=== PATIENT | male | born 1935 | race Caucasian/White ===

== ENCOUNTER 2017-06-11 15:02 | Emergency (ER) | payer MEDICARE, OTHER ==
[~2017-06-11] VITALS: Ht 177.8 cm; Wt 80.0 kg
[~2017-06-11 15:02] MED LIST: ACCU40TA10 PO; ASPI81 PO; COUM1TAB PO; COUM4TAB7 PO; HYDR-2768 PO; LEVI20TA PO
[2017-06-11 15:24] VITALS: BP 188/103; PULSE 150; RESP 20; TEMP 98.3
--- NOTE | 2017-06-11 16:04 | PD ---
HPI Chief Complaint: ENT Complaint Time Seen by Provider: 15:30 Travel History International Travel<30 days: No Contact w/Intl Traveler<30days: No Traveled to known affect area: No History of Present Illness HPI 81-year-old male complains of bleeding from the left ear. Patient has history of atrial fibrillation and on Coumadin. Patient was at his personal physician office today. Patient has was found to have impacted cerumen left ear. Irrigation was advised. Patient started having bleeding from the left ear during the procedure. Patient states that he felt a pop and then he started having bleeding problem from the left ear. Patient denies any headache. Patient denies any chest pain or shortness of breath. Patient denies abdominal pain. Patient denies other problem. Patient states that he has elevated heart rates recently. Patient has not seen a mate relief of the past 5 years. PFSH Past Medical History Blood Disorders: No Cancer: No Cardiovascular Problems: Yes Endocrine: No Genitourinary: No Headaches: Yes (TODAY) Hypertension: Yes (ON MEDICATION DAILY) Immune Disorder: No Musculoskeletal: Yes Neurologic: Yes Psychiatric: No Reproductive: No Respiratory: Yes (WALKING PNEUMONIA 1978) Past Surgical History AICD: No Arteriovenous Shunt: No Insulin Pump: No Joint Replacement: No Pacemaker: No Tonsillectomy: Yes Social History Alcohol Use: Yes (ONE WINE NIGHTLY) Tobacco Use: No (QUIT IN 1978) Substance Use: No Allergies-Medications (Allergen,Severity, Reaction): Coded Allergies: No Known Allergies (Verified Adverse Reaction, Unknown, 06/11/17) Reported Meds & Prescriptions Reported Meds & Active Scripts Active Amoxicillin 500 Mg Cap 500 Mg PO TID Cardizem CD 24 HR (Diltiazem CD 24 HR) 180 Mg Caper 180 Mg PO DAILY Reported Warfarin 1 Mg Tab 1 Mg PO DAILY Warfarin 4 Mg Tab 4 Mg PO DAILY Levitra (Vardenafil) 20 Mg Tab 20 Mg PO DAILY PRN Accupril (Quinapril HCl) 40 Mg Tab 40 Mg PO DAILY Aspirin EC (Aspirin) 81 Mg Tabdr 81 Mg PO DAILY Hydrochlorothiazide 25 Mg Tab 25 Mg PO DAILY Review of Systems General / Constitutional: No: Fever Eyes: No: Visual changes HENT: No: Headaches Cardiovascular: No: Chest Pain or Discomfort Respiratory: No: Shortness of Breath Gastrointestinal: No: Abdominal Pain Genitourinary: No: Dysuria Musculoskeletal: No: Pain Skin: No Rash Neurologic: No: Weakness Psychiatric: No: Depression Endocrine: No: Polydipsia Hematologic/Lymphatic: No: Easy Bruising Physical Exam Narrative GENERAL: Well-nourished, well-developed patient. SKIN: Focused skin assessment warm/dry. HEAD: Normocephalic. EYES: No scleral icterus. No injection or drainage. Patient had fresh blood in the left ear canal. No active bleeding. Unable to visualize the left TM. NECK: Supple, trachea midline. No JVD or lymphadenopathy. CARDIOVASCULAR: Irregular irregular rate and rhythm without murmurs, gallops, or rubs. RESPIRATORY: Breath sounds equal bilaterally. No accessory muscle use. GASTROINTESTINAL: Abdomen soft, non-tender, nondistended. MUSCULOSKELETAL: No cyanosis, or edema. BACK: Nontender without obvious deformity. No CVA tenderness. Data Data Last Documented VS Vital Signs Date Time Temp Pulse Resp B/P (MAP) Pulse Ox O2 Delivery O2 Flow Rate FiO2 06/11/17 16:10 118 18 145/95 (112) 95 Room Air 06/11/17 15:24 98.3 Orders Orders Diltiazem (Cardizem) (06/11/17 16:45) Electrocardiogram (06/11/17 ) Ed Discharge Order (06/11/17 17:31) MDM Medical Decision Making Medical Screen Exam Complete: Yes Emergency Medical Condition: Yes Interpretation(s) environmental monitoring technician shows patient has atrial fibrillation with RVR rate between 120- 140 Differential Diagnosis Differential diagnosis including left ear canal abrasion, laceration, left TM rupture. Narrative Course 81-year-old male with left ear bleeding during left ear irrigation procedure. Patient has history of atrial fibrillation on Coumadin. Patient states that her INR has been stable for last 4 years and does not want to have PT/INR done again today. The left ear canal stop bleeding completely. Unable to see the left TM. Patient has A. fib with RVR. Cardizem 60 mg p.o. given. Heart rate under more control. Diagnosis Primary Impression: Abrasion of left ear canal Qualified Codes: S00.412A - Abrasion of left ear, initial encounter Additional Impressions: Traumatic rupture of left ear drum Qualified Codes: S09.22XA - Traumatic rupture of left ear drum, initial encounter Atrial fibrillation with RVR Patient Instructions: General Instructions Additional Instructions: Amoxicillin as directed. Check INR in 3 days and subsequently while on antibiotic. Follow-up with ENT. Return if persistent bleeding. Cardizem as directed. Follow-up with personal physician and mate relief. Return if persistent problem or worse. Return if persistent elevated heart rate. Med/Other Pt SpecificInfo: Prescription(s) given Scripts Amoxicillin (Amoxicillin) 500 Mg Cap 500 MG PO TID for Infection, #15 CAP 0 Refills Prov: Remberto Saleh MD 06/11/17 Diltiazem CD 24 HR (Cardizem CD 24 HR) 180 Mg Caper 180 MG PO DAILY, #30 CAP 0 Refills Prov: Remberto Saleh MD 06/11/17 Disposition: 01 DISCHARGE HOME Condition: Stable Remberto Saleh MD Jun 11, 2017 16:03
[2017-06-11 16:10] VITALS: BP 145/95; PULSE 118; RESP 18; O2SAT 95
[2017-06-11] MEDS ORDERED: LEVI20TA PO (16:16)
[2017-06-11] MEDS ORDERED: WARF-20 PO (16:16)
[2017-06-11] MEDS ORDERED: WARF4TAB52 PO (16:16)
[2017-06-11] MEDS ORDERED: HYDR25TA5 PO (16:16)
[2017-06-11] MEDS ORDERED: ACCU40TA PO (16:16)
[2017-06-11] MEDS ORDERED: ASPI81TA23 PO (16:16)
[2017-06-11] MEDS ORDERED: CARD180C5 PO (16:37)
[2017-06-11] MEDS ORDERED: AMOX500C PO (16:37)
[2017-06-11] MEDS ORDERED: DILTIAZEM HCL 60 MG TAB PO ONE (16:45)
[2017-06-11 17:54] VITALS: BP 139/68; PULSE 99; RESP 18; O2SAT 99
--- NOTE | 2017-06-12 13:27 | EKG ---
Date Performed: 06/11/2017 Time Performed: 16:47:40 PTAGE: 81 years EKG: ATRIAL FIBRILLATION WITH RAPID VENTRICULAR RESPONSE RIGHT BUNDLE BRANCH BLOCK ST DEVIATION AND MODERATE T-WAVE ABNORMALITY, CONSIDER LATERAL ISCHEMIA ABNORMAL ECG Compared to PREVIOUS TRACING atrial fibrillation with rapid v response is new, anterior T wave becker es are also now noted, consider anterior ischemia PREVIOUS TRACIN11/22/2006 04.47 DOCTOR: Hector Carter Interpretating Date/Time 06/12/2017 13:26:22
== END 2017-06-11 18:12 | disposition home or self-care (01) ==
LOC: NEPC 15:02
DX: H95.41 Postprocedural hemorrhage of ear and mastoid process following a procedure on the ear and mastoid process (principal); S09.22XA Traumatic rupture of left ear drum, initial encounter; I48.91 Unspecified atrial fibrillation; I45.10 Unspecified right bundle-branch block; R94.31 Abnormal electrocardiogram [ECG] [EKG]; I10 Essential (primary) hypertension; Y65.8 Other specified misadventures during surgical and medical care; Z79.01 Long term (current) use of anticoagulants; Z79.82 Long term (current) use of aspirin
CPT/HCPCS: 93005; 99283

== ENCOUNTER → 2017-06-17 | Outpatient (CLI) | payer MEDICARE, OTHER ==
[~2017-06-17] MED LIST changes: +ACCU40TA PO; -ACCU40TA10 PO; +AMOX500C PO; -ASPI81 PO; +ASPI81TA23 PO; +CARD180C5 PO; -COUM1TAB PO; -COUM4TAB7 PO; -HYDR-2768 PO; +HYDR25TA5 PO; +WARF-20 PO; +WARF4TAB52 PO
[2017-06-17 11:50] LABS: PROTHROMBIN TIME - PATIENT 27.6 SEC (9.8-11.6)
[2017-06-17 11:58] LABS: INTERNATIONAL NORMALIZED RATIO 2.7 RATIO
== END ==
LOC: CLAB 10:47
PROVIDERS: ATTEND Family Medicine
DX: I48.0 Paroxysmal atrial fibrillation (principal)
CPT/HCPCS: 36415; 85610

== ENCOUNTER → 2017-07-17 | Outpatient (CLI) | payer MEDICARE, OTHER ==
[2017-07-17 12:35] LABS: INTERNATIONAL NORMALIZED RATIO 2.9 RATIO; PROTHROMBIN TIME - PATIENT 28.8 SEC (9.8-11.6)
== END ==
LOC: CLAB 12:11
PROVIDERS: ATTEND Family Medicine
DX: I48.0 Paroxysmal atrial fibrillation (principal)
CPT/HCPCS: 36415; 85610

== ENCOUNTER 2018-03-29 06:21 | Inpatient (IN) ==
[~2018-03-29 06:21] MED LIST changes: -ACCU40TA PO; -AMOX500C PO; -ASPI81TA23 PO; -CARD180C5 PO; -HYDR25TA5 PO; -LEVI20TA PO; +Metoprolol Tartrate 25 MG Tablet PO SCH; -WARF-20 PO; -WARF4TAB52 PO
[2018-03-29] MEDS ORDERED: Dextrose 50% in Water 50 ML Vial IV.PUSH PRN ×2 (06:46→11:55)
[2018-03-29] MEDS ORDERED: Insulin Regular (For Infusion) 100 UNIT in Sodium Chlor 0.9% Inj 99 ML IV.CONT PRN ×2 (06:46→11:55)
[2018-03-29] MEDS ORDERED: Sodium Chlor 0.9% Inj 77.5 ML, Papaverine Inj 60 MG, Nitroglycerin Inj 100 MCG, dilTIAZ... IRRIGATION SCH ×3 (07:00)
[2018-03-29] MEDS ORDERED: Chlorhexidine 4% Topical 120 APPLIC/120 ML Bottle TOPICAL SCH (07:00)
[2018-03-29] MEDS ORDERED: ceFAZolin 2 GM IV; once IV.SIG SCH (07:00)
[2018-03-29] MEDS ORDERED: Sodium Chloride 0.9% Irr Bot 500 ML, ceFAZolin Inj 500 MG IRRIGATION SCH ×2 (07:00)
[2018-03-29] MEDS ORDERED: Sodium Chlor 0.9% Inj 500 ML IV.CONT ONE (07:15)
[2018-03-29] MEDS ORDERED: Chlorhexidine Gluconate 2% 1 Pack (2 Cloths) TOPICAL ONE (07:15)
[2018-03-29] MEDS ORDERED: Metoprolol Tartrate 25 MG Tablet PO ONE (07:15)
[2018-03-29] MEDS ORDERED: ceFAZolin 2 GM Premix Inj 2 GM/50 ML PIGGYBACK IV.SIG ONE (07:36)
[2018-03-29] MEDS ORDERED: MethylPREDNISolone Sod Succinate Inj 125 MG/2 ML Vial ONE (07:37)
[2018-03-29] MEDS ORDERED: Heparin - SQ 10,000 UNITS/ML Vial ONE (07:37)
[2018-03-29] MEDS ORDERED: Dexmedetomidine Inj 200 MCG/2 ML Vial ONE (08:27)
[2018-03-29] MEDS ORDERED: Heparin - SQ 10,000 UNITS/ML Vial OTHER ONE (08:37)
[2018-03-29] MEDS ORDERED: Artificial Tears Opth Oint 3.5 GM Tube EACH EYE ONE (08:37)
[2018-03-29] MEDS ORDERED: Dexmedetomidine Inj 200 MCG/2 ML Vial IV.CONT ONE (08:37)
[2018-03-29] MEDS ORDERED: Glycopyrrolate Inj 1 MG/5 ML Syringe IV.PUSH ONE (08:37)
[2018-03-29] MEDS ORDERED: Nitroglycerin Drip Premix 50 MG/250 ML BOTTLE IV.CONT ONE (08:37)
[2018-03-29] MEDS ORDERED: Phenylephrine/NS 1000 MCG/10ML Syringe IV.PUSH ONE (08:37)
[2018-03-29] MEDS ORDERED: Lidocaine PF 1% Inj 5 ML Syringe OTHER ONE (08:37)
[2018-03-29] MEDS ORDERED: Neostigmine Inj 5 MG/5 ML Syringe IV.PUSH ONE (08:37)
[2018-03-29] MEDS ORDERED: Calcium Chloride Inj 1 GM/10 ML Syringe IV.CONT ONE (08:37)
[2018-03-29] MEDS ORDERED: Protamine Sulfate Inj 250 MG/25 ML Vial IV.CONT ONE (08:37)
[2018-03-29] MEDS ORDERED: Magnesium Sulfate Inj 2 GM in Sodium Chlor 0.9% Inj 96 ML IV.SIG PRN ×4 (11:55)
[2018-03-29] MEDS ORDERED: Dexmedetomidine Inj 200 MCG in Sodium Chlor 0.9% Inj 48 ML IV.CONT PRN (11:55)
[2018-03-29] MEDS ORDERED: Metoprolol Inj 5 MG/5 ML Vial IV.PUSH PRN (11:55)
[2018-03-29] MEDS ORDERED: Post-op Orders (for Pharmacy) OTHER STA (11:55)
[2018-03-29] MEDS ORDERED: hydrALAZINE HCl Inj 20 MG/ML Vial IV.PUSH PRN (11:55)
[2018-03-29] MEDS ORDERED: RESP: Racemic Epinephrine 2.25% 0.5 ML Neb NEB PRN (11:55)
[2018-03-29] MEDS ORDERED: Potassium Chlor 20 mEq Premix 20 MEQ/100 ML PIGGYBACK IV.SIG PRN ×2 (11:55)
[2018-03-29] MEDS ORDERED: Calcium Chloride Inj 1 GM/10 ML Syringe IV.PUSH PRN (11:55)
--- NOTE | 2018-03-29 12:02 | P.OP ---
- Preoperative Diagnosis (1) CAD (coronary artery disease) (2) Angina pectoris (3) CHF (congestive heart failure), NYHA class III (4) Calcification of aorta Postoperative Diagnosis: same Date of procedure: 03/29/18 Implants: OFF pump CABG x 3 GARZA to LAd - good SVG to D1 - good SVG to PDA - good EVH MOO Anesthesia: SHAKIR Surgeon: Karrie Miller MD Inspector And Hand Packager: Veronica Winn Pathology: none sent Operation and Findings: The risks, benefits, complications, treatment options, and expected outcomes were discussed with the patient. The possibilities of reaction to medication, pulmonary aspiration, perforation of viscus, bleeding, recurrent infection, the need for additional procedures, failure to diagnose a condition, and creating a complication requiring transfusion or operation were discussed with the patient. The patient concurred with the proposed plan, giving informed consent. The site of surgery properly noted/marked. The patient was taken to Operating Room, identified as Buck Romero and the procedure verified as CABG, EVH, MOO. A Time Out was held and the above information confirmed. Standard monitoring lines and Nunez catheter were placed. General anesthesia was induced. The patient was prepped and draped in a sterile fashion. A median sternotomy was performed and electrocautery was used to obtain hemostasis. The left internal mammary artery was procured as a pedicle from the 7th rib to the 1st rib in the usual manner. Simultaneously left greater saphenous vein was procured from the left leg using a minimally invasive endoscopic technique. The vein was prepared for anastomosis and the leg wound was irrigated and closed in 2 layers. The pericardium was opened and a pericardial sling was created using interrupted 0 silk sutures. The patient was heparinized for cardiopulmonary bypass and the distal mammary pedicle was instrumented for anastomosis. The heart was instrumented with stabilizers for off pump grafting in the usual manner. The distal LAD was opened with a Alvord blade and found to be a 1.5 millimeter good target. The left internal mammary artery was approximated to the LAD using a running 7 0 Prolene suture. The pedicle was attached to the epicardium using interrupted 5 0 silk suture. The 1st diagonal artery was then opened with a Alvord blade and found to be a 1.5 millimeter good target. Saphenous vein was approximated to the D1 artery using a running 7 0 Prolene suture. The graft was measured for length and orientation and was suspended from the pericardium. The PDA was opened with a Alvord blade and found to be a 1.5 millimeter good target. Saphenous vein was approximated to the PDA artery using a running 7 0 Prolene suture. The graft was measured for length and orientation and the proximal anastomosis was constructed to the ascending aorta using a running 5 0 Prolene suture after creating an aortotomy with a 5 millimeter punch. A Heartstring device was used for hemostasis. The proximal anastomosis to the D1 graft was accomplished in an end to side manner to the PDA vein graft after creating a small venotomy using running 7-0 Prolene suture. Protamine was given. There was no adverse reaction. Wound was checked for hemostasis which was obtained using electrocautery. A 36 Korean mediastinal and 32 Korean left pleural chest tubes were placed and secured to the skin with 0 silk suture. The sternum was closed with stainless steel wire. The fascia was closed with 1. PDS. The subcutaneous tissue was closed using a running 2-0 Vicryl suture. The skin was closed with 4-0 Monocryl. Sterile dressings were placed. At the end of the operation, all sponge, instruments, and needle counts were correct. The patient was transferred to the CVICU in stable condition. Findings: PORCELAIN AORTA Drains: mediastinal x 1 pleural x 1 Complications: NONE
[2018-03-29 12:40] LABS: Baso % (Auto) 0.2 % (0.0-2.0); Eos # (Auto) 0.1 th/mm3 (0.0-0.4); Eos % (Auto) 0.9 % (0.0-4.0); Hematocrit 37.8 % (39.0-51.0); Lymph # (Auto) 1.3 th/mm3 (1.0-4.8); Lymph % (Auto) 16.5 % (9.0-44.0); Mean Corpuscular HGB Conc 34.3 % (32.0-36.0); Mean Corpuscular Hemoglobin 30.1 pg (27.0-34.0); Mean Corpuscular Volume 87.6 fL (80.0-100.0); Mean Platelet Volume 8.5 fL (7.0-11.0); Mono # (Auto) 0.3 th/mm3 (0.0-0.9); Mono % (Auto) 3.4 % (0.0-8.0); Neut # (Auto) 6.1 th/mm3 (1.8-7.7); Platelet Count 86 th/mm3 (150-450); Red Blood Count 4.32 mil/mm3 (4.50-5.90); Red Cell Distribution Width 15.5 % (11.6-17.2); White Blood Count 7.7 th/mm3 (4.0-11.0)
[2018-03-29 12:55] LABS: Activated Partial Thrombo Time 29.8 sec (23.4-31.7); INR 1.3 Ratio; Prothrombin Time 13.5 sec (9.8-11.6)
[2018-03-29] MEDS ORDERED: Clevidipine Inj 25 MG/50 ML VIAL IV.CONT PRN (13:02)
[2018-03-29] MEDS ORDERED: fentaNYL Citrate Inj 250 MCG/5 ML Ampul ONE (13:09)
[2018-03-29 13:12] LABS: Platelet Morphology Normal (Normal)
[2018-03-29] MEDS: Albumin Human 5% Inj 250 ML IV.SIG PRN ×2 (13:22→14:20)
--- NOTE | 2018-03-29 13:32 | XR ---
EXAM DATE: 03/29/2018 1:26 PM EST AGE/SEX: 82 years / Male INDICATIONS: Post op CABG. CLINICAL DATA: This is the patient's initial encounter. Patient reports that signs and symptoms have been present for 1 day and indicates a pain score of Nonresponsive. MEDICAL/SURGICAL HISTORY: Hypertension. AFIB. Non-responsive. COMPARISON: C, CHEST 2V PA&LAT, 03/22/2018. . FINDINGS: Mild compensated cardiomegaly. Sternal wires from previous bypass are noted. ET tube central venous c atheter and left chest tube in good position. There is no pneumothorax. Mediastinal contours are appr opriate. CONCLUSION: Support apparatus in good position Satisfactory postoperative chest. Electronically signed by: Adair Oh MD Board Certified Radiologist 03/29/2018 1:30 PM EST
[2018-03-29] MEDS ORDERED: Calcium Chloride Inj 1 GM in Sodium Chlor 0.9% Inj 100 ML IV.SIG PRN (14:00)
--- NOTE | 2018-03-29 14:45 | P.PNCV ---
- Note Subjective/Hospital Course: 82/ male initially seen in office by Dr Miller 03/18/18. hx of chronic afib, presented to Dr Singh having developed exertional SOB. Overall decreased ability to exercise, evaluated with a stress test and ECHO which were notable for reduced EF. Recent heart cath revealed 3 vessel CAD, EF 35% PMH: chronic afib ( eliquis) , GERD, CAD, HLP, HTN, CHF 03/29 pt electively admitted for surgery - Preoperative Diagnosis (1) CAD (coronary artery disease (2) Angina pectoris (3) CHF (congestive heart failure), NYHA class III (4) Calcification of aorta Date of procedure: 03/29/18 OFF pump CABG x 3 GARZA to LAd - good SVG to D1 - good SVG to PDA - good EVH MOO Objective: Vital Signs - 24 hr 03/29/18 07:03 03/29/18 12:58 03/29/18 13:07 Temperature 97.6 F 96.0 F L Pulse Rate 90 58 L Respiratory Rate 22 10 L 10 L Blood Pressure 124/57 L 101/59 L Pulse Oximetry 98 99 99 03/29/18 13:20 Temperature 96.0 F L Pulse Rate 67 Respiratory Rate 9 L Blood Pressure 122/61 Pulse Oximetry 99 Labs: Laboratory Results - last 12 hr 03/29/18 03/29/18 03/29/18 06:48 12:23 12:24 WBC 7.7 RBC 4.32 L Hgb 13.0 Hct 37.8 L MCV 87.6 MCH 30.1 MCHC 34.3 RDW 15.5 Plt Count 86 L D MPV 8.5 Prelim Diff (Auto) Slide review pending Neut % (Auto) 79.0 H Lymph % (Auto) 16.5 [place] % (Auto) 3.4 Eos % (Auto) 0.9 Baso % (Auto) 0.2 Neut # (Auto) 6.1 Lymph # (Auto) 1.3 [place] # (Auto) 0.3 Eos # (Auto) 0.1 Baso # (Auto) 0.0 WBC Differential . Diff Scan Auto diff confirmed Differential Comment . Platelet Estimate Low L Platelet Morphology Normal PT INR APTT Fibrinogen POC Glucose Blood Type A Positive Antibody Screen Negative H Ab Screen Tube Method Negative Crossmatch See Detail Bld Prod Order Comment 03/29/18 03/29/18 12:24 13:53 WBC RBC Hgb Hct MCV MCH MCHC RDW Plt Count MPV Prelim Diff (Auto) Neut % (Auto) Lymph % (Auto) [place] % (Auto) Eos % (Auto) Baso % (Auto) Neut # (Auto) Lymph # (Auto) [place] # (Auto) Eos # (Auto) Baso # (Auto) WBC Differential Diff Scan Differential Comment Platelet Estimate Platelet Morphology PT 13.5 H INR 1.3 APTT 29.8 Fibrinogen 174 L POC Glucose 137 H Blood Type Antibody Screen Ab Screen Tube Method Crossmatch Bld Prod Order Comment Result Diagrams: 03/29/18 12:24
--- NOTE | 2018-03-29 14:51 | P.DCO ---
- Diagnosis (1) Angina pectoris Status: Acute (2) CAD (coronary artery disease) Status: Acute (3) CHF (congestive heart failure), NYHA class III Status: Chronic (4) S/P CABG x 3 Status: Acute (5) Atrial fibrillation Status: Acute - Home Health Nursing Order: Medical education, Signs/symptoms of disease process, CHF education, Wound care and dressing changes, Nursing assessment with vital signs Instructions: Heart and Vascular Surgery patients *Special attention to sternal dressing Mandatory frequency Assess and evaluation, 4 days in a row The next week 3X week 2 times a week for 4 weeks 1 time a week for 5 weeks Schedule Heart and Vascular patients for full 60 day certification period Initial visit Review Open Heart Surgery Discharge Instructions (Sternal precautions, Activity, Elastic hose, Incision care, Driving, Incentive spirometry, Smoking, [place], Work and other) Need Betadine to paint incision Medication reconciliation Importance of follow up care/ check on appointments Make calendar record temperature daily When to call [facility] at Home nurse, review instructions, phone list Incentive Spirometry, demonstration Visit 1- Begin discharge instruction for patient family and/ or caregiver using teach back method- Signs and symptoms of infection Disease characteristics Medicines and side effects Foods and nutrition/ appetite Infection control/ hand washing/ hygiene Visit 2- Continue teaching Discharge instructions- include additional information on smoking cessation , sternal dressing (sternal vac) Visit 3- Continue teaching- Cough and deep breathing, incision monitoring. Choose my plate Visit 4- Continue teaching- Discuss limitations Discuss how they are feeling Discuss progress toward goals Remaining visits- continue teaching and monitoring For any questions please call : Thursday 8am-5pm Heart & Vascular Surgery Office ( Dr. Winn & Dr. Miller), After Hours / Nights (5pm -8am) Weekends and Holidays Please call [facility] ([facility]) Charge Nurse Incentive spirometry Q1 hr x 10, while awake, also use acapella device hourly whole awake Sternal Breast Bone Precautions: NO pushing or pulling, ( pt must use sternal pillow to support chest with all activities and with coughing ( takes up to 3 months breast bone to heal ) All females to wear sternal bra , launder as needed Daily incision care: ok to shower daily, no tub bath. Wash all incisions with liquid dial soap, clean wash cloth to each site, rinse and pat dry. Observe for any signs of infection, such as drainage which is dark yellow, nguyen, green or foul smelling. Immediately report to the surgeon any drainage from the chest incision, or legs, and for any abnormal drainage from the chest tube sites. Notify surgeon if any temp >101.5 degrees F. When specialty dressing removed/ or if you do not have one, continue to shower daily as above, then rinse and pat incision dry and paint with betadine daily x 5 days. Allow steri strips to fall off if you have any. Avoid lotions, creams, salves, oils, etc. for the first month Please see attached forms for additional instructions regarding post Open Heart specialty wound vacuum dressings. MARISELA or Prevena , Dressing to be removed by Nursing staff on __04/05/[address] Miller patients , please obtain CBC, BMP, PA & Lat CXR in 2 weeks, results to Dr. Miller ( prescription will be given) ( ) (Tele: [phone]) , Valve replacement pts will need 2decho in 2 weeks with results to Dr. Miller . Please obtain 2 d echo at your relay shop tester office if possible F/U appointment: as per DC instructions: PCP in 2 weeks, CV surgeon 2 weeks, Strategic Sourcing Manager 3-4 weeks For any questions regarding incisions/ dressing / meds / post op care or above Symptoms, Thursday 8am-5pm Heart & Vascular Surgery Office ( Dr. Winn & Dr. Miller), After Hours / Nights (5pm -8am) Weekends and Holidays Please call [facility] Card[facility] Unit ([facility]) Charge Nurse PREVENA Single Use Negative Wound Therapy System Caregiver Instruction Sheet 1. A Prevena dressing system was applied to the chest incision during surgery , to promote wound healing. It works via a suction device (negative pressure wound therapy) to remove low to moderate levels of exudate (drainage) and infectious materials. We recommend that the device stay in place for up to seven days, from day of surgery. 2. Day of Surgery___03/29/18 Day of Removal 04/05/18 3. The dressing should only be removed by a health customer care agent. Please arrange removal of device to coincide with Home Health visit and or with Nursing staff at Rehab 4. If skin reddening or irritation of skin occurs, or excessive drainage, please notify the Cardiovascular Surgeons office at [phone]. 5. Light showering is permissible; however the pump should be disconnected and placed in safe location, where it will not get wet. The dressing should not be exposed to direct spray or submerged in water. No bath tub / shower only. Ensure the end of the tubing attached to the dressing is facing down so that water does not enter the top of the tube. 6. To remove Prevena dressing: press purple button to turn off device / remove the suction. Then disconnect the tubing from the pump. The fixation strips should be stretched away from the skin and the dressing lifted at one corner and peeled back until it has been fully removed. 7. After removal, it is ok to shower daily using liquid dial soap and clean wash cloth, rinse and pat dry, and leave incision open to air dry. For any concerns regarding Prevena dressing, and or wounds, please contact Autumn Hernandez, patient navigator at [phone] or notify the Cardiovascular Surgeons office at [phone]. - Case Management Consult Case Management Consult-Home Health: Yes - Certification I have seen patient Buck Romero on 03/29/18. My clinical findings support the need for the requested home health care services because: Deconditioned with increased weakness I certify that my clinical findings support that this patient is homebound because: Post-op weakness
[2018-03-29] MEDS: Mupirocin 2% Nasal Oint Topical Syringe EACH NARE SCH ×2 (16:13→20:52)
[2018-03-29] MEDS: Potassium Chlor 20 mEq Premix 20 MEQ/100 ML PIGGYBACK IV.SIG PRN ×2 (16:17→18:05)
[2018-03-29] MEDS: fentaNYL Citrate Inj 100 MCG/2 ML Ampul IV.PUSH PRN ×2 (20:52→23:16)
[2018-03-30] MEDS: fentaNYL Citrate Inj 100 MCG/2 ML Ampul IV.PUSH PRN ×2 (02:19→06:19)
--- NOTE | 2018-03-30 04:34 | XR ---
EXAM DATE: 03/30/2018 4:26 AM EST AGE/SEX: 82 years / Male INDICATIONS: Post CABG. CLINICAL DATA: This is the patient's subsequent encounter. Patient reports that signs and symptoms h ave been present for 2 days and indicates a pain score of Nonresponsive. MEDICAL/SURGICAL HISTORY: . Hypertension. AFIB. Non-responsive. COMPARISON: . FINDINGS: There has been interval extubation. Right neck sheath and central line remain in place. Left thoracos donovan tube remains in place. Lungs remain focally clear. Cardiac contours are satisfactory. CONCLUSION: Interval extubation with stable satisfactory aeration. Electronically signed by: Guillermo Smart MD Board Certified Radiologist 03/30/2018 4:33 AM EST
[2018-03-30 05:29] LABS: Hematocrit 33.9 % (39.0-51.0); Hemoglobin 11.6 gm/dL (13.0-17.0); Mean Corpuscular HGB Conc 34.2 % (32.0-36.0); Mean Corpuscular Hemoglobin 29.4 pg (27.0-34.0); Mean Corpuscular Volume 86.1 fL (80.0-100.0); Mean Platelet Volume 8.5 fL (7.0-11.0); Platelet Count 151 th/mm3 (150-450); Red Blood Count 3.94 mil/mm3 (4.50-5.90); Red Cell Distribution Width 15.3 % (11.6-17.2); White Blood Count 10.9 th/mm3 (4.0-11.0)
[2018-03-30 05:48] LABS: Calcium 8.3 mg/dL (8.5-10.1); Carbon Dioxide 26.1 meq/L (21.0-32.0); Magnesium 2.1 mg/dL (1.5-2.5); Potassium 4.4 meq/L (3.5-5.1)
[2018-03-30] MEDS ORDERED: Sod Phosphate/Sod Biphosphate (Adult) Enema 133 ML Bottle RECTAL PRN (08:34)
[2018-03-30] MEDS ORDERED: Bisacodyl 10 MG Supp RECTAL PRN (08:34)
[2018-03-30] MEDS ORDERED: Dextrose 50% in Water 50 ML Vial IV.PUSH PRN (08:34)
--- NOTE | 2018-03-30 08:53 | P.PNCV ---
- Note Subjective/Hospital Course: 82/ male initially seen in office by Dr Miller 03/18/18. hx of chronic afib, presented to Dr Singh having developed exertional SOB. Overall decreased ability to exercise, evaluated with a stress test and ECHO which were notable for reduced EF. Recent heart cath revealed 3 vessel CAD, EF 35% PMH: chronic afib ( eliquis) , GERD, CAD, HLP, HTN, CHF 03/29 pt electively admitted for surgery - Preoperative Diagnosis (1) CAD (coronary artery disease (2) Angina pectoris (3) CHF (congestive heart failure), NYHA class III (4) Calcification of aorta Date of procedure: 03/29/18 OFF pump CABG x 3 GARZA to LAd - good SVG to D1 - good SVG to PDA - good EVH MOO extubate after surgery crystalloid 3000cc, 250cc cell saver, 500cc EBL 03/30 had 1090cc/ 24 hrs , 530cc blood drainage from chest tube received cryo and plts HGB 11 this am plt 151 BP and HR elevated , Afib rate 120 , add BB tid , gentle diuresis was on eliquis at home weaned off insulin gtt transfer to stepdown Objective: Vital Signs - 24 hr 03/29/18 12:58 03/29/18 13:07 03/29/18 13:20 Temperature 96.0 F L 96.0 F L Pulse Rate 58 L 67 Respiratory Rate 10 L 10 L 9 L Blood Pressure 101/59 L 122/61 Pulse Oximetry 99 99 99 03/29/18 13:50 03/29/18 15:00 03/29/18 15:01 Temperature 98.6 F 96.1 F L Pulse Rate 75 62 Respiratory Rate 10 L Blood Pressure 103/51 L Pulse Oximetry 98 03/29/18 15:19 03/29/18 15:25 03/29/18 16:00 Temperature 96.3 F L 98.6 F 97.3 F L Pulse Rate 78 80 Respiratory Rate 10 L 10 L Blood Pressure 112/48 L 109/51 L Pulse Oximetry 98 03/29/18 16:13 03/29/18 16:45 03/29/18 16:46 Temperature 98.3 F Pulse Rate 100 H Respiratory Rate 0 L 14 Blood Pressure 137/62 Pulse Oximetry 97 97 03/29/18 17:55 03/29/18 18:34 03/29/18 19:00 Temperature 98.6 F Pulse Rate 90 96 H Respiratory Rate Blood Pressure Pulse Oximetry 03/29/18 19:31 03/29/18 20:45 03/29/18 21:06 Temperature 98.9 F 98.9 F Pulse Rate 101 H Respiratory Rate 18 18 Blood Pressure 109/66 Pulse Oximetry 96 03/29/18 21:50 03/29/18 22:22 03/29/18 23:00 Temperature 98.9 F Pulse Rate 100 H 116 H Respiratory Rate 18 Blood Pressure Pulse Oximetry 95 03/29/18 23:35 03/29/18 23:46 03/30/18 03:00 Temperature 98.8 F Pulse Rate 113 H 103 H Respiratory Rate 20 18 Blood Pressure 130/94 H Pulse Oximetry 97 03/30/18 03:25 03/30/18 04:47 03/30/18 06:49 Temperature 99.0 F Pulse Rate 102 H 112 H Respiratory Rate 18 18 18 Blood Pressure 104/64 Pulse Oximetry 97 93 L 03/30/18 07:00 03/30/18 07:49 Temperature 98 F Pulse Rate 130 H 134 H Respiratory Rate 14 Blood Pressure 109/65 Pulse Oximetry 99 GENERAL: A&O x 3 SKIN: Warm and dry. prevena dressing to chest , jamaal wrap to left leg HEAD: Normocephalic. EYES: No scleral icterus. No injection or drainage. NECK: Supple, trachea midline. No JVD or lymphadenopathy. CARDIOVASCULAR: irregular rate and rhythm without murmurs, gallops, or rubs. mild general edema RESPIRATORY: Breath sounds equal bilaterally. No accessory muscle use. few crackles in bases , chest tube to wall suction GASTROINTESTINAL: Abdomen soft, non-tender, nondistended. MUSCULOSKELETAL: No cyanosis, or edema. BACK: Nontender without obvious deformity. No CVA tenderness. Labs: Laboratory Results - last 12 hr 03/29/18 03/29/18 03/30/18 20:49 21:52 00:07 WBC RBC Hgb Hct MCV MCH MCHC RDW Plt Count MPV Sodium Potassium Chloride Carbon Dioxide Anion Gap BUN Creatinine Estimated GFR POC Glucose 122 H 105 102 Random Glucose Calcium Magnesium 03/30/18 03/30/18 03/30/18 03:21 05:04 05:04 WBC 10.9 RBC 3.94 L Hgb 11.6 L Hct 33.9 L MCV 86.1 MCH 29.4 MCHC 34.2 RDW 15.3 Plt Count 151 D MPV 8.5 Sodium 141 Potassium 4.4 Chloride 109 H Carbon Dioxide 26.1 Anion Gap 6 BUN 25 H Creatinine 1.21 Estimated GFR 57 L POC Glucose 105 Random Glucose 109 H Calcium 8.3 L Magnesium 2.1 03/30/18 03/30/18 03/30/18 05:06 07:30 08:17 WBC RBC Hgb Hct MCV MCH MCHC RDW Plt Count MPV Sodium Potassium Chloride Carbon Dioxide Anion Gap BUN Creatinine Estimated GFR POC Glucose 113 H 125 H 126 H Random Glucose Calcium Magnesium Result Diagrams: 03/30/18 05:04 03/30/18 05:04 Telemetry: Afib - Plan (4) S/P CABG x 3 Plan: Neuro: alert and oriented CV: chronic afib resume BB , eval to resume JAMAAL gentle diuresis ASA, statin Resp: pulm toileting nebs ezpap, wean 02 GI: on PPI GI motility meds Endo: wean off insulin gtt PT.OT rehab vs [facility]
[2018-03-30] MEDS: Ascorbic Acid 500 MG Tablet PO SCH (08:58)
[2018-03-30] MEDS: Mupirocin 2% Nasal Oint Topical Syringe EACH NARE SCH ×2 (08:58→20:27)
[2018-03-30] MEDS: Multivitamin/Minerals Therapeutic Tablet PO SCH (08:59)
[2018-03-30] MEDS: Insulin NovoLOG Aspart Correctional Sugar Inj SQ SCH ×4 (09:05→22:14)
[2018-03-30] MEDS: Metoprolol Tartrate 25 MG Tablet PO SCH ×3 (09:07→17:25)
--- NOTE | 2018-03-30 10:19 | P.DIET ---
Nutritional Evaluation Screening comments: MDC for diet education s/p CABG x 3. Patient Navigator to provide education. Consult RD if complexities with diet education arise.
--- NOTE | 2018-03-30 12:22 | ECG ---
Date Performed: 03/30/2018 Time Performed: 05:45:02 PTAGE: 82 years EKG: Sinus tachycardia with PAC(s) Right bundle branch block Inferior/lateral ST-T changes may b e due to myocardial ischemia Abnormal ECG PREVIOUS TRACING : 03/22/2018 13.23 DOCTOR: Gustavo Ervin Interpretating Date/Time 03/30/2018 12:22:17
[2018-03-30] MEDS ORDERED: Digoxin Inj 500 MCG/2 ML Ampul IV.PUSH ONE ×2 (13:45→17:22)
[2018-03-30 13:47] LABS: Baso % (Auto) 0.1 % (0.0-2.0); Hematocrit 33.1 % (39.0-51.0); Hemoglobin 11.1 gm/dL (13.0-17.0); Lymph # (Auto) 0.7 th/mm3 (1.0-4.8); Lymph % (Auto) 6.3 % (9.0-44.0); Mean Corpuscular HGB Conc 33.5 % (32.0-36.0); Mean Corpuscular Hemoglobin 29.4 pg (27.0-34.0); Mean Corpuscular Volume 87.5 fL (80.0-100.0); Mean Platelet Volume 8.6 fL (7.0-11.0); Mono # (Auto) 0.7 th/mm3 (0.0-0.9); Mono % (Auto) 6.4 % (0.0-8.0); Neut # (Auto) 10.1 th/mm3 (1.8-7.7); Neut % (Auto) 87.2 % (16.0-70.0); Platelet Count 161 th/mm3 (150-450); Red Blood Count 3.78 mil/mm3 (4.50-5.90); Red Cell Distribution Width 15.3 % (11.6-17.2); White Blood Count 11.6 th/mm3 (4.0-11.0)
[2018-03-30] MEDS ORDERED: Sodium Chlor 0.9% Inj 250 ML IV.SIG ONE (14:00)
--- NOTE | 2018-03-30 16:56 | P.CONCC ---
History of Present Illness Service: Critical care medicine Consult date: 03/30/18 Requesting Physician: Karrie Miller Reason for Consult: A. fib with RVR Primary Care Provider: Ramila Goldstein MD Chief Complaint: Shortness of breath History of Present Illness: 82-year-old male with a medical history significant for chronic atrial fibrillation, triple-vessel disease on recent cardiac catheterization with EF 35 % who underwent OFF pump CABG x 3, GARZA to LAd, SVG to D1, SVG to PDA, EVH on 01/[address] Watt, crystalloid 3000cc, 250cc cell saver, 500cc EBL hE was extubated postoperatively. Had significant chest tube output postoperatively and was transfused platelets and cryoprecipitate postoperatively. Patient has been in A. fib with RVR with borderline blood pressures. Critical care was consulted by Dr. Watt for heart rate in the 140s with systolic blood pressure in the 90s earlier. Patient was given IV digoxin with which his heart rate has come down to the 100s. When I evaluated the patient he was resting comfortably in a chair on nasal cannula. He did not appear to be in any acute distress. Overnight he had 530cc bloodY drainage from chest tube. Review of Systems All other systems reviewed negative except as stated in HPI PMFSH - History History Provided By: Patient - Medical History Medical History: Medical History (Last Reviewed 03/30/18 @ 07:52 by Laura Yeung) A-fib CHF (congestive heart failure) Hypertension Raynaud disease - Surgical History Surgical History: Surgical History (Last Reviewed 03/30/18 @ 07:52 by Laura Yeung) Hx of colonoscopy Hx of tonsillectomy - Tobacco History Second Hand Smoke Exposure: No Tobacco Use In Past 30 Days: No Smoking Status: Former smoker - Alcohol History How Often Do You Have a Drink Containing Alcohol: Monthly or less - Substance Use History Substance History: No History of Abuse Medications and Allergies Active Medications: Active Medications Al Hydroxide/Mg Hydroxide (Milk Of Sia Liq) 30 ml PO DAILY BERE Last Admin: 03/30/18 08:59 Dose: 30 ml Albuterol (Duoneb Neb (Prn)) 1 ampul NEB Q2HR NEB PRN PRN Reason: WHEEZING Albuterol (Duoneb Neb (Bere)) 1 ampul NEB Q6HR NEB BERE Last Admin: 03/30/18 16:27 Dose: Not Given Albuterol (Duoneb Neb ([facility])) 1 ampul NEB Q6HR WHILE AWAKE NEB [facility] Stop: 04/01/18 13:59 Last Admin: 03/30/18 16:27 Dose: 1 ampul Ascorbic Acid (Vitamin C) 1,000 mg PO DAILY [facility] Last Admin: 03/30/18 08:58 Dose: 1,000 mg Aspirin (Ecotrin) 81 mg PO DAILY [facility] Last Admin: 03/30/18 08:58 Dose: 81 mg Atorvastatin Calcium (Lipitor) 20 mg PO DAILY@1800 [facility] Last Admin: 03/29/18 18:39 Dose: Not Given Bisacodyl (Dulcolax Supp) 10 mg RECTAL PRN PRN PRN Reason: SEE LABEL COMMENTS Chlorhexidine Gluconate (Hibiclens 4% Topical) 1 applicatio TOPICAL E [employer] [facility] Stop: 04/04/18 06:47 Sodium Chloride 77.5 ml/Papaverine HCl 60 mg/Nitroglycerin 100 mcg/Diltiazem HCl 100 mg 0 ml IRRIGATION E [employer] [facility] Stop: 04/04/18 06:47 Last Admin: 03/29/18 10:04 Dose: 1 bag Sodium Chloride 500 ml/ (Cefazolin Sodium 500 mg) 0 ml IRRIGATION E [employer] [facility] Stop: 04/04/18 06:48 Last Admin: 03/29/18 10:05 Dose: 1 bag Dextrose (D50w Vial) 50 ml IV.PUSH UNSCH PRN PRN Reason: PER HYPOGLYCEMIA PROTOCOL Digoxin (Lanoxin) 250 mcg PO DAILY [facility] Digoxin (Lanoxin Inj) 250 mcg IV.PUSH ONCE ONE Stop: 03/30/18 17:23 Docusate Sodium (Colace) 100 mg PO BID [facility] Glucagon (Glucagon Inj) 1 mg OTHER PRN PRN PRN Reason: For hypoglycemia Cefazolin Sodium/Dextrose (Ancef 2 Gm Premix Inj) 2 gm in 50 mls @ 100 mls/hr IV.SIG E [employer] [facility] Stop: 04/01/18 06:59 Last Infusion: 03/29/18 09:47 Dose: Infused Cefazolin Sodium 1 gm/ Sodium (Chloride) 100 mls @ 200 mls/hr IV.SIG Q8H [facility] Stop: 03/30/18 22:29 Insulin Aspart (Novolog Insulin Correctional Sugar Inj) 0 unit SQ 02,06,10,14, 18,22 [facility]; Protocol Last Admin: 03/30/18 13:40 Dose: 3 unit Metoprolol Tartrate (Lopressor) 12.5 mg PO E [employer] [facility] Stop: 04/04/18 06:49 Last Admin: 03/29/18 07:17 Dose: Not Given Metoprolol Tartrate (Lopressor Inj) 2.5 mg IV.PUSH Q1H PRN PRN Reason: SEE LABEL COMMENTS Last Admin: 03/30/18 11:10 Dose: 2.5 mg Metoprolol Tartrate (Lopressor) 25 mg PO TID [facility] Last Admin: 03/30/18 13:22 Dose: Not Given Multivitamins/Minerals (Theragran-M) 1 tab PO DAILY [facility] Last Admin: 03/30/18 08:59 Dose: 1 tab Mupirocin (Bactroban 2% Nasal Oint) 1 applicatio EACH NARE BID [facility] Stop: 04/02/18 06:50 Last Admin: 03/30/18 08:58 Dose: 1 applicatio Ondansetron HCl (Zofran Inj) 4 mg IV.PUSH Q6H PRN PRN Reason: NAUSEA OR VOMITING Last Admin: 03/29/18 20:54 Dose: 4 mg Oxycodone/Acetaminophen (Percocet 5/325 Mg) 1 tab PO Q3H PRN PRN Reason: PAIN SCALE 1 TO 5 Last Admin: 03/30/18 09:00 Dose: 1 tab Pantoprazole Sodium (Protonix) 40 mg PO DAILY@06 [facility] Last Admin: 03/30/18 06:19 Dose: 40 mg Polyethylene Glycol (Miralax) 17 gm PO DAILY [facility] Sennosides (Senokot) 8.6 mg PO HS [facility] Sodium Biphosphate/Sodium Phosphate (Fleets Enema (Adult)) 118 ml RECTAL UNSCH PRN PRN Reason: SEE LABEL COMMENTS Sodium Chloride (Ns Flush) 2 ml IV.FLUSH PRN PRN PRN Reason: FLUSH AFTER USING IV ACCESS Sodium Chloride (Ns Flush) 2 ml IV.FLUSH BID [facility] Last Admin: 03/30/18 08:59 Dose: 2 ml Allergies Allergy/AdvReac Type Severity Reaction Status Date / Time No Known Allergies Allergy Verified 03/29/18 06:59 Home Medications Medication Instructions Recorded Confirmed Type apixaban [Eliquis] 5 mg PO BID 03/22/18 03/29/18 History aspirin [Aspirin Low Dose] 81 mg PO DAILY 03/22/18 03/29/18 History atorvastatin 20 mg PO QPM 03/22/18 03/29/18 History furosemide 20 mg PO DAILY 03/22/18 03/29/18 History metoprolol tartrate 100 mg PO BID 03/22/18 03/29/18 History chsyavdo-ixo-ET-lycopen-lutein 1 tab PO DAILY 03/22/18 03/29/18 History [Centrum Silver] quinapril 5 mg PO DAILY 03/22/18 03/29/18 History ascorbic acid (vitamin C) [Vitamin 1,000 mg PO DAILY 03/29/18 03/29/18 History C] Physical Exam Vital signs: Vital Signs 03/29/18 16:45 03/29/18 16:46 03/29/18 17:55 Temperature 98.3 F 98.6 F Pulse Rate 100 H Respiratory Rate 14 Blood Pressure 137/62 Pulse Oximetry 97 97 03/29/18 18:34 03/29/18 19:00 03/29/18 19:31 Temperature 98.9 F Pulse Rate 90 96 H 101 H Respiratory Rate 18 Blood Pressure 109/66 Pulse Oximetry 96 03/29/18 20:45 03/29/18 21:06 03/29/18 21:50 Temperature 98.9 F 98.9 F Pulse Rate Respiratory Rate 18 Blood Pressure Pulse Oximetry 03/29/18 22:22 03/29/18 23:00 03/29/18 23:35 Temperature 98.8 F Pulse Rate 100 H 116 H 113 H Respiratory Rate 18 20 Blood Pressure 130/94 H Pulse Oximetry 95 97 03/29/18 23:46 03/30/18 03:00 03/30/18 03:25 Temperature 99.0 F Pulse Rate 103 H 102 H Respiratory Rate 18 18 Blood Pressure 104/64 Pulse Oximetry 97 03/30/18 04:47 03/30/18 06:49 03/30/18 07:00 Temperature Pulse Rate 112 H 130 H Respiratory Rate 18 18 Blood Pressure Pulse Oximetry 93 L 03/30/18 07:49 03/30/18 09:14 03/30/18 11:00 Temperature 98 F Pulse Rate 134 H 131 H Respiratory Rate 14 14 Blood Pressure 109/65 Pulse Oximetry 99 03/30/18 11:35 03/30/18 11:54 03/30/18 12:34 Temperature 97.8 F Pulse Rate 138 H 119 H Respiratory Rate 14 20 Blood Pressure 107/60 Pulse Oximetry 95 98 98 03/30/18 15:00 03/30/18 15:42 03/30/18 16:29 Temperature 98 F Pulse Rate 104 H 110 H 101 H Respiratory Rate 16 20 Blood Pressure 117/63 Pulse Oximetry 94 L Intake & Output 03/29/18 03/30/18 03/30/18 18:59 06:59 18:59 Intake Total 4731 / 4731 630 / 630 1670 / 1670 Output Total 2738 / 2738 1030 / 1030 Balance 1992 / 1992 -400 / -400 1670 / 1670 Weight 75 kg Intake: IV 960 / 960 390 / 390 1670 / 1670 Cleviprex Inj 25 mg In 50 ml @ 20 / 20 1 MG/HR 2 mls/hr IV.CONT TITRATE PRN Rx#:[id number] LR 1000 mL Inj 1,000 ML @ 30 1000 / 1000 mls/hr IV.CONT .Q24H ONE Rx#: [id number] Ofirmev Inj 1,000 mg In 100 ml 100 / 100 200 / 200 100 / 100 @ 400 mls/hr IV.SIG Q6H BERE Rx# :[id number] Buminate 5% Inj 250 ML @ 250 500 / 500 mls/hr IV.SIG UNSCH PRN Rx#: [id number] Calcium Chloride Inj 1 GM In NS 110 / 110 Inj 100 ML @ 100 mls/hr IV.SIG PRN PRN Rx#:[id number] KCl 20 mEq Premix Inj 20 meq In 100 / 100 100 / 100 100 / 100 100 ml @ 50 mls/hr IV.SIG PRN PRN Rx#:[id number] NS Inj 250 ML @ Wide Open IV. 250 / 250 SIG BOLUS ONE Rx#:[id number] Ancef 2 GM Premix Inj 2 gm In 50 / 50 50 ml @ 100 mls/hr IV.SIG E [employer] BERE Rx#:[id number] Ancef Inj 1,000 MG In NS Inj 100 / 100 90 / 90 200 / 200 100 ML @ 200 mls/hr IV.SIG Q8H BERE Rx#:[id number] Oral 240 / 240 Anesthesia Amount 3000 / 3000 Intake (Blood Product) Amt 521 / 521 Plt Pheresis B Leukoreduced 287 / 287 Unit [id number] Pre-Pooled Cryo Thawed 10units 234 / 234 Unit [id number] Cell Saver Amount 250 / 250 Output: Estimated Blood Loss 500 / 500 Urine Amount (Catheter) 1148 / 1148 500 / 500 Indwelling Temp Sensing 1148 / 1148 500 / 500 Catheter Chest Tube Drainage 1090 / 1090 530 / 530 #2 Pleural/Mediastinal Y 1090 / 1090 530 / 530 Connected Narrative: HEENT/Neuro: No pallor or icterus, tongue moist, RISHABH, Awake alert oriented 3 , nonfocal grossly, moving all 4 extremities Neck: No JVD Chest/pulmonary: Vac dressing over sternotomy site, CTA bilaterally Cardiovascular: S1-S2 irregularly irregular no gallop or murmur. Chest tubes in place with bloody drainage. GI/abdomen: Soft, nontender, bowel sounds present Extremities: Warm bilaterally, no edema. Tyree wrap over saphenous vein graft harvest site over left lower extremity noted. - Urinary Catheter Management Indwelling Temp Sensing Catheter Cath placed during this visit: yes, but has since been removed by the nurse Reason for continuing: Decision to DC catheter Insertion date: 03/29/18 Insertion time: 09:00 Removal date: 03/30/18 Removal time: 05:47 Assessment and Plan - Assessment and Plan Plan: 82-year-old male with: Triple-vessel disease status post three-vessel CABG postop day 1 A. fib with RVR chronic afib GERD, Hyperlipidemia History of hypertension History of CHF (LVEF 35%) Plan: Neuro: Acute pain medications as ordered. Follow neuro status. Pulmonary: Supplemental O2, chest PT, pulmonary toilet. Cardiovascular: Follow chest tube output. Digitalized for A. fib with RVR. Hold beta-dedrick/calcium channel blockers due to borderline blood pressures. Being followed by CT surgery. Initiate antiplatelet therapy once chest tube output has decreased. No anticoagulation at this time. Holding diuretics in view of borderline BP and low CVP currently. GI/liver: Protonix. P.o. diet as tolerated Renal/: Strict intake output, monitor and replete electrolytes, follow BUN and creatinine. Bladder scan as patient has had negligible urine output since a.m. ID: Preop antibiotic prophylaxis per CT surgery Endocrine: Off insulin drip. SSI for glycemic control as needed. Heme: Follow CBC and coags. Received cryoprecipitate and platelets postoperatively. Prophylaxis: Protonix/SCDs. Subcu heparin/Lovenox when okay with CT surgery Critical care will continue to follow.
[2018-03-30] MEDS ORDERED: Magnesium Sulfate Inj 2 GM in Sodium Chlor 0.9% Inj 100 ML IV.SIG PRN (18:09)
[2018-03-30] MEDS ORDERED: Calcium Chloride Inj 1 GM in Sodium Chlor 0.9% Inj 100 ML IV.SIG ONE (18:30)
[2018-03-30] MEDS: Docusate Sodium 100 MG Capsule PO SCH (20:27)
[2018-03-30 21:06] LABS: Baso % (Auto) 0.1 % (0.0-2.0); Hematocrit 32.4 % (39.0-51.0); Hemoglobin 11.1 gm/dL (13.0-17.0); Lymph # (Auto) 1.2 th/mm3 (1.0-4.8); Lymph % (Auto) 9.8 % (9.0-44.0); Mean Corpuscular HGB Conc 34.2 % (32.0-36.0); Mean Corpuscular Hemoglobin 29.6 pg (27.0-34.0); Mean Corpuscular Volume 86.6 fL (80.0-100.0); Mean Platelet Volume 8.9 fL (7.0-11.0); Mono # (Auto) 1.4 th/mm3 (0.0-0.9); Mono % (Auto) 11.2 % (0.0-8.0); Neut # (Auto) 9.9 th/mm3 (1.8-7.7); Neut % (Auto) 78.9 % (16.0-70.0); Platelet Count 159 th/mm3 (150-450); Red Blood Count 3.74 mil/mm3 (4.50-5.90); Red Cell Distribution Width 15.4 % (11.6-17.2); White Blood Count 12.5 th/mm3 (4.0-11.0)
[2018-03-30 21:19] LABS: Magnesium 2.2 mg/dL (1.5-2.5); Phosphorus 3.7 mg/dL (2.5-4.9)
[2018-03-30 21:20] LABS: Calcium 8.9 mg/dL (8.5-10.1); Carbon Dioxide 27.1 meq/L (21.0-32.0); Potassium 4.4 meq/L (3.5-5.1)
[2018-03-30] MEDS ORDERED: ceFAZolin Inj 1 GM in Sodium Chlor 0.9% Inj 100 ML IV.SIG SCH (22:00)
[2018-03-31] MEDS: Insulin NovoLOG Aspart Correctional Sugar Inj SQ SCH ×6 (02:05→22:24)
[2018-03-31 06:23] LABS: Eos % (Auto) 0.1 % (0.0-4.0); Lymph # (Auto) 1.4 th/mm3 (1.0-4.8); Lymph % (Auto) 14.1 % (9.0-44.0); Mean Corpuscular HGB Conc 34.2 % (32.0-36.0); Mean Corpuscular Hemoglobin 30.2 pg (27.0-34.0); Mean Corpuscular Volume 88.1 fL (80.0-100.0); Mean Platelet Volume 8.4 fL (7.0-11.0); Mono # (Auto) 1.2 th/mm3 (0.0-0.9); Neut # (Auto) 7.6 th/mm3 (1.8-7.7); Neut % (Auto) 73.8 % (16.0-70.0); Platelet Count 143 th/mm3 (150-450); Red Blood Count 3.63 mil/mm3 (4.50-5.90); Red Cell Distribution Width 15.4 % (11.6-17.2); White Blood Count 10.2 th/mm3 (4.0-11.0)
[2018-03-31 06:41] LABS: Calcium 8.3 mg/dL (8.5-10.1); Carbon Dioxide 27.7 meq/L (21.0-32.0); Potassium 4.4 meq/L (3.5-5.1)
--- NOTE | 2018-03-31 07:13 | P.PNCC ---
Subjective Subjective Remarks/Hospital Course: 82-year-old male with a medical history significant for chronic atrial fibrillation, triple-vessel disease on recent cardiac catheterization with EF 35 % who underwent OFF pump CABG x 3, GARZA to LAd, SVG to D1, SVG to PDA, EVH on 01/[address] Watt, crystalloid 3000cc, 250cc cell saver, 500cc EBL hE was extubated postoperatively. Had significant chest tube output postoperatively and was transfused platelets and cryoprecipitate postoperatively. Patient has been in A. fib with RVR with borderline blood pressures. Critical care was consulted by Dr. Watt for heart rate in the 140s with systolic blood pressure in the 90s earlier. Patient was given IV digoxin with which his heart rate has come down to the 100s. When I evaluated the patient he was resting comfortably in a chair on nasal cannula. He did not appear to be in any acute distress. Overnight he had 530cc bloodY drainage from chest tube. 03/31: Sitting up in chair no acute distress. Continues to be in A. fib with RVR. Systolic blood pressure in 110s. Chest tube output has diminished approximately 300 mL in 24 hours. UO 1.2L in 24 hours. Needing straight catheterization for urinary retention. Start amiodarone 150 mg bolus and infusion per protocol. Start back on Eliquis once cleared by CT surgery Objective Vital Signs / I&O: Vital Signs 03/30/18 07:49 03/30/18 09:14 03/30/18 11:00 Temperature 98 F Pulse Rate 134 H 131 H Respiratory Rate 14 14 Blood Pressure 109/65 Pulse Oximetry 99 03/30/18 11:35 03/30/18 11:54 03/30/18 12:34 Temperature 97.8 F Pulse Rate 138 H 119 H Respiratory Rate 14 20 Blood Pressure 107/60 Pulse Oximetry 95 98 98 03/30/18 15:00 03/30/18 15:42 03/30/18 16:29 Temperature 98 F Pulse Rate 104 H 110 H 101 H Respiratory Rate 16 20 Blood Pressure 117/63 Pulse Oximetry 94 L 03/30/18 19:00 03/30/18 20:00 03/30/18 21:08 Temperature 98.6 F Pulse Rate 105 H 110 H 101 H Respiratory Rate 16 20 Blood Pressure 112/72 Pulse Oximetry 95 95 03/30/18 23:00 03/31/18 00:00 03/31/18 03:00 Temperature 98.8 F Pulse Rate 95 H 101 H 105 H Respiratory Rate 16 Blood Pressure 121/64 Pulse Oximetry 93 L 03/31/18 04:00 03/31/18 07:00 Temperature 99.2 F Pulse Rate 118 H 120 H Respiratory Rate 18 Blood Pressure 130/86 Pulse Oximetry 93 L Intake & Output 03/30/18 03/31/18 03/31/18 18:59 06:59 18:59 Intake Total 1670 / 1670 210 / 210 Output Total 830 / 830 630 / 630 Balance 840 / 840 -420 / -420 Weight 78 kg Intake: IV 1670 / 1670 210 / 210 Cleviprex Inj 25 mg In 50 ml @ 20 / 20 1 MG/HR 2 mls/hr IV.CONT TITRATE PRN Rx#:[id number] LR 1000 mL Inj 1,000 ML @ 30 1000 / 1000 mls/hr IV.CONT .Q24H ONE Rx#: [id number] Ofirmev Inj 1,000 mg In 100 ml 100 / 100 @ 400 mls/hr IV.SIG Q6H RONIT Rx# :[id number] Calcium Chloride Inj 1 GM In NS 110 / 110 Inj 100 ML @ 110 mls/hr IV.SIG ONCE ONE Rx#:[id number] KCl 20 mEq Premix Inj 20 meq In 100 / 100 100 ml @ 50 mls/hr IV.SIG PRN PRN Rx#:[id number] NS Inj 250 ML @ Wide Open IV. 250 / 250 SIG BOLUS ONE Rx#:[id number] Ancef Inj 1 GM In NS Inj 100 ML 100 / 100 @ 200 mls/hr IV.SIG Q8H RONIT Rx #:[id number] Ancef Inj 1,000 MG In NS Inj 200 / 200 100 ML @ 200 mls/hr IV.SIG Q8H RONIT Rx#:[id number] Output: Urine Amount (Catheter) 700 / 700 450 / 450 Straight 700 / 700 450 / 450 Chest Tube Drainage 130 / 130 180 / 180 #2 Pleural/Mediastinal Y 130 / 130 180 / 180 Connected Result Diagrams: 03/31/18 06:00 03/31/18 06:00 Objective Remarks: GEN: Sitting up in chair, no acute distress. Tachycardic HEENT: No pallor or icterus, tongue moist, RISHABH Neck: No JVD Chest/pulmonary: Vac dressing over sternotomy site, CTA bilaterally Cardiovascular: S1-S2 irregularly irregular no gallop or murmur. A. fib with RVR on telemetry. Chest tubes in place with bloody drainage, but diminishing output. GI/abdomen: Soft, nontender, bowel sounds present Extremities: Warm bilaterally, no edema. Tyree wrap over saphenous vein graft harvest site over left lower extremity noted. Neuro: Awake alert oriented 3, nonfocal grossly, moving all 4 extremities Assessment and Plan - Assessment and Plan Plan: 82-year-old male with: Triple-vessel disease status post three-vessel CABG postop day 2 A. fib with RVR Borderline hypotension chronic afib GERD, Hyperlipidemia History of hypertension History of CHF (LVEF 35%) Plan: Neuro: Acute pain medications as ordered. Follow neuro status. Pulmonary: Supplemental O2, chest PT, pulmonary toilet. Cardiovascular: Follow chest tube output, now diminishing. Digitalized for A. fib with RVR. Hold beta-dedrick/calcium channel blockers due to borderline blood pressures. Being followed by CT surgery. Amiodarone 150 mg bolus and infusion per protocol for rate control Start back on Eliquis when cleared by CT surgery, chest tube removed Initiate antiplatelet therapy once chest tube output has decreased, cleared by CT surgery. No anticoagulation at this time. Holding diuretics in view of borderline BP and low CVP currently. GI/liver: Protonix. P.o. diet as tolerated Renal/: Strict intake output, monitor and replete electrolytes, follow BUN and creatinine. Bladder scan and straight cath as needed ID: Preop antibiotic prophylaxis per CT surgery Endocrine: SSI for glycemic control as needed. Heme: Follow CBC and coags. Received cryoprecipitate and platelets postoperatively. Prophylaxis: Protonix/SCDs. Subcu heparin/Lovenox vs Resume eliquis when okay with CT surgery Critical care will continue to follow. Level 3
[2018-03-31] MEDS ORDERED: Amiodarone Inj 150 MG in Dextrose 5% in Water Inj 97 ML IV.SIG ONE ×2 (07:30)
[2018-03-31] MEDS: Polyethylene Glycol 3350 17 GM Packet PO SCH (08:32)
[2018-03-31] MEDS: Finasteride 5 MG Tablet PO SCH (08:34)
[2018-03-31] MEDS: Docusate Sodium 100 MG Capsule PO SCH ×2 (08:34→20:23)
[2018-03-31] MEDS: Ascorbic Acid 500 MG Tablet PO SCH (08:35)
[2018-03-31] MEDS: Digoxin 250 MCG Tablet PO SCH (08:35)
[2018-03-31] MEDS: Mupirocin 2% Nasal Oint Topical Syringe EACH NARE SCH ×2 (08:35→20:23)
[2018-03-31] MEDS: Multivitamin/Minerals Therapeutic Tablet PO SCH (08:35)
[2018-03-31] MEDS: Metoprolol Tartrate 25 MG Tablet PO SCH ×3 (08:48→17:33)
[2018-03-31] MEDS ORDERED: Mag Sulf 1 gm/100 ml Premix 100 ML IV.SIG ONE (08:58)
--- NOTE | 2018-03-31 09:07 | P.PNCV ---
- Note Subjective/Hospital Course: 82/ male initially seen in office by Dr Miller 03/18/18. hx of chronic afib, presented to Dr Singh having developed exertional SOB. Overall decreased ability to exercise, evaluated with a stress test and ECHO which were notable for reduced EF. Recent heart cath revealed 3 vessel CAD, EF 35% PMH: chronic afib ( eliquis) , GERD, CAD, HLP, HTN, CHF 03/29 pt electively admitted for surgery - Preoperative Diagnosis (1) CAD (coronary artery disease (2) Angina pectoris (3) CHF (congestive heart failure), NYHA class III (4) Calcification of aorta Date of procedure: 03/29/18 OFF pump CABG x 3 GARZA to LAd - good SVG to D1 - good SVG to PDA - good EVH MOO extubate after surgery crystalloid 3000cc, 250cc cell saver, 500cc EBL 03/30 had 1090cc/ 24 hrs , 530cc blood drainage from chest tube received cryo and plts HGB 11 this am plt 151 BP and HR elevated , Afib rate 120 , add BB tid , gentle diuresis was on eliquis at home weaned off insulin gtt transfer to stepdown 03/31 remains in afib RVR given digoxin , now on amiodarone gtt will need to leave chest tube in for now , add lovenox for now restart eliquis when chest tube out replace mag, Objective: Vital Signs - 24 hr 03/30/18 09:14 03/30/18 11:00 03/30/18 11:35 Temperature 97.8 F Pulse Rate 131 H 138 H Respiratory Rate 14 14 Blood Pressure 107/60 Pulse Oximetry 95 03/30/18 11:54 03/30/18 12:34 03/30/18 15:00 Temperature Pulse Rate 119 H 104 H Respiratory Rate 20 Blood Pressure Pulse Oximetry 98 98 03/30/18 15:42 03/30/18 16:29 03/30/18 19:00 Temperature 98 F Pulse Rate 110 H 101 H 105 H Respiratory Rate 16 20 Blood Pressure 117/63 Pulse Oximetry 94 L 03/30/18 20:00 03/30/18 21:08 03/30/18 23:00 Temperature 98.6 F Pulse Rate 110 H 101 H 95 H Respiratory Rate 16 20 Blood Pressure 112/72 Pulse Oximetry 95 95 03/31/18 00:00 03/31/18 03:00 03/31/18 04:00 Temperature 98.8 F 99.2 F Pulse Rate 101 H 105 H 118 H Respiratory Rate 16 18 Blood Pressure 121/64 130/86 Pulse Oximetry 93 L 93 L 03/31/18 07:00 03/31/18 07:25 03/31/18 07:26 Temperature 97.5 F L Pulse Rate 120 H 110 H Respiratory Rate 14 Blood Pressure 101/56 L Pulse Oximetry 94 L 94 L 03/31/18 07:35 Temperature Pulse Rate 115 H Respiratory Rate 16 Blood Pressure Pulse Oximetry GENERAL: A&O x 3 SKIN: Warm and dry. prevena dressing to chest , incision intact to left leg HEAD: Normocephalic. EYES: No scleral icterus. No injection or drainage. NECK: Supple, trachea midline. No JVD or lymphadenopathy. CARDIOVASCULAR: irregular rate and rhythm without murmurs, gallops, or rubs. RESPIRATORY: Breath sounds equal bilaterally. No accessory muscle use. diminished in bases R>L, crackles noted in bases GASTROINTESTINAL: Abdomen soft, non-tender, nondistended. MUSCULOSKELETAL: No cyanosis, or edema. BACK: Nontender without obvious deformity. No CVA tenderness. Labs: Laboratory Results - last 12 hr 03/30/18 03/30/18 03/30/18 20:20 20:20 20:20 WBC 12.5 H RBC 3.74 L Hgb 11.1 L Hct 32.4 L MCV 86.6 MCH 29.6 MCHC 34.2 RDW 15.4 Plt Count 159 MPV 8.9 Neut % (Auto) 78.9 H Lymph % (Auto) 9.8 [place] % (Auto) 11.2 H Eos % (Auto) 0.0 Baso % (Auto) 0.1 Neut # (Auto) 9.9 H Lymph # (Auto) 1.2 [place] # (Auto) 1.4 H Eos # (Auto) 0.0 Baso # (Auto) 0.0 WBC Differential . Differential Comment Auto diff final Sodium 139 Potassium 4.4 Chloride 105 Carbon Dioxide 27.1 Anion Gap 7 BUN 30 H Creatinine 1.59 H Estimated GFR 42 L POC Glucose Random Glucose 118 H Calcium 8.9 Phosphorus 3.7 Magnesium 2.2 03/30/18 03/31/18 03/31/18 22:10 01:42 06:00 WBC 10.2 RBC 3.63 L Hgb 11.0 L Hct 32.0 L MCV 88.1 MCH 30.2 MCHC 34.2 RDW 15.4 Plt Count 143 L MPV 8.4 Neut % (Auto) 73.8 H Lymph % (Auto) 14.1 [place] % (Auto) 12.0 H Eos % (Auto) 0.1 Baso % (Auto) 0.0 Neut # (Auto) 7.6 Lymph # (Auto) 1.4 [place] # (Auto) 1.2 H Eos # (Auto) 0.0 Baso # (Auto) 0.0 WBC Differential . Differential Comment Auto diff final Sodium Potassium Chloride Carbon Dioxide Anion Gap BUN Creatinine Estimated GFR POC Glucose 108 127 H Random Glucose Calcium Phosphorus Magnesium 03/31/18 06:00 WBC RBC Hgb Hct MCV MCH MCHC RDW Plt Count MPV Neut % (Auto) Lymph % (Auto) [place] % (Auto) Eos % (Auto) Baso % (Auto) Neut # (Auto) Lymph # (Auto) [place] # (Auto) Eos # (Auto) Baso # (Auto) WBC Differential Differential Comment Sodium 140 Potassium 4.4 Chloride 105 Carbon Dioxide 27.7 Anion Gap 7 BUN 27 H Creatinine 1.28 Estimated GFR 54 L POC Glucose Random Glucose 123 H Calcium 8.3 L Phosphorus Magnesium 2.0 Result Diagrams: 03/31/18 06:00 03/31/18 06:00 - Plan (4) S/P CABG x 3 Plan: Neuro: alert and oriented CV: chronic afib Dig, BB , amiodarone eval to resume JAMAAL gentle diuresis ASA, statin Resp: pulm toileting nebs ezpap, wean 02 add mucomyst GI: on PPI GI motility meds Endo: insulin sliding scale PT.OT rehab vs [facility]
[2018-03-31] MEDS: Enoxaparin Inj 40 MG/0.4 ML Syringe SQ SCH (09:33)
[2018-03-31 12:31] LABS: Bacteria,Urine Rare /hpf; Bilirubin,Urine Negative (Negative); Clarity,Urine Clear (Clear); Color,Urine Yellow (Yellw/Straw); Glucose,Urine (UA) Negative (Negative); Hyaline Casts,Urine 3 /lpf (0-3); Leukocyte Esterase,Urine Negative (Negative); Mucus,Urine Few /lpf (Occasional); Nitrite,Urine Negative (Negative); Specific Gravity,Urine 1.015 (1.002-1.035); Squamous Epithelial Cell,Urine <1 /hpf (0-5)
[2018-04-01] MEDS: Insulin NovoLOG Aspart Correctional Sugar Inj SQ SCH ×5 (02:30→21:32)
[2018-04-01 05:12] LABS: Hematocrit 27.4 % (39.0-51.0); Hemoglobin 9.6 gm/dL (13.0-17.0); Mean Corpuscular HGB Conc 34.9 % (32.0-36.0); Mean Corpuscular Hemoglobin 30.7 pg (27.0-34.0); Mean Platelet Volume 8.7 fL (7.0-11.0); Platelet Count 96 th/mm3 (150-450); Red Blood Count 3.12 mil/mm3 (4.50-5.90); Red Cell Distribution Width 15.3 % (11.6-17.2); White Blood Count 5.6 th/mm3 (4.0-11.0)
[2018-04-01 05:35] LABS: Calcium 7.5 mg/dL (8.5-10.1); Carbon Dioxide 29.8 meq/L (21.0-32.0); Magnesium 2.1 mg/dL (1.5-2.5)
[2018-04-01] MEDS: Polyethylene Glycol 3350 17 GM Packet PO SCH (08:39)
[2018-04-01] MEDS: Mupirocin 2% Nasal Oint Topical Syringe EACH NARE SCH (08:40)
[2018-04-01] MEDS: Metoprolol Tartrate 25 MG Tablet PO SCH ×3 (08:40→18:00)
[2018-04-01] MEDS: Docusate Sodium 100 MG Capsule PO SCH ×2 (08:41→21:27)
[2018-04-01] MEDS: Digoxin 250 MCG Tablet PO SCH (08:41)
[2018-04-01] MEDS: Multivitamin/Minerals Therapeutic Tablet PO SCH (08:42)
[2018-04-01] MEDS: Finasteride 5 MG Tablet PO SCH (08:42)
[2018-04-01] MEDS: Enoxaparin Inj 40 MG/0.4 ML Syringe SQ SCH ×2 (08:42→08:52)
[2018-04-01] MEDS: Ascorbic Acid 500 MG Tablet PO SCH (08:43)
--- NOTE | 2018-04-01 11:00 | P.PNCV ---
- Note Subjective/Hospital Course: 82/ male initially seen in office by Dr Miller 03/18/18. hx of chronic afib, presented to Dr Singh having developed exertional SOB. Overall decreased ability to exercise, evaluated with a stress test and ECHO which were notable for reduced EF. Recent heart cath revealed 3 vessel CAD, EF 35% PMH: chronic afib ( eliquis) , GERD, CAD, HLP, HTN, CHF 03/29 pt electively admitted for surgery - Preoperative Diagnosis (1) CAD (coronary artery disease (2) Angina pectoris (3) CHF (congestive heart failure), NYHA class III (4) Calcification of aorta Date of procedure: 03/29/18 OFF pump CABG x 3 GARZA to LAd - good SVG to D1 - good SVG to PDA - good EVH MOO extubate after surgery crystalloid 3000cc, 250cc cell saver, 500cc EBL 03/30 had 1090cc/ 24 hrs , 530cc blood drainage from chest tube received cryo and plts HGB 11 this am plt 151 BP and HR elevated , Afib rate 120 , add BB tid , gentle diuresis was on eliquis at home weaned off insulin gtt transfer to stepdown 03/31 remains in afib RVR given digoxin , now on amiodarone gtt will need to leave chest tube in for now , add lovenox for now restart eliquis when chest tube out replace mag, 04/01 unable to start JAMAAL for now with labile BP chest tube dc without difficulty resume eliquis this pm continue dig and BB UA with some bacteria / add 3 doses of rocephin Objective: Vital Signs - 24 hr 03/31/18 11:00 03/31/18 11:10 03/31/18 13:25 Temperature 97.8 F Pulse Rate 114 H 97 H 103 H Respiratory Rate 14 17 Blood Pressure 101/55 L Pulse Oximetry 96 03/31/18 15:00 03/31/18 15:56 03/31/18 19:00 Temperature 97.8 F Pulse Rate 110 H 107 H 102 H Respiratory Rate 15 Blood Pressure 103/47 L Pulse Oximetry 90 L 03/31/18 20:00 03/31/18 21:00 03/31/18 21:09 Temperature 98.0 F Pulse Rate 98 H 92 H 100 H Respiratory Rate 20 22 Blood Pressure 105/52 L Pulse Oximetry 94 L 94 L 03/31/18 22:00 03/31/18 23:00 04/01/18 00:00 Temperature 98 F Pulse Rate 100 H 97 H 102 H Respiratory Rate 20 Blood Pressure 106/51 L Pulse Oximetry 94 L 04/01/18 01:00 04/01/18 02:00 04/01/18 03:00 Temperature Pulse Rate 106 H 106 H 116 H Respiratory Rate Blood Pressure Pulse Oximetry 04/01/18 04:00 04/01/18 05:00 04/01/18 06:00 Temperature 98.3 F Pulse Rate 96 H 102 H 95 H Respiratory Rate 20 Blood Pressure 116/56 L Pulse Oximetry 93 L 04/01/18 07:00 04/01/18 08:00 04/01/18 08:26 Temperature 98.4 F Pulse Rate 99 H 98 H 104 H Respiratory Rate 18 15 Blood Pressure 103/57 L Pulse Oximetry 94 L 93 L 04/01/18 09:00 Temperature Pulse Rate 98 H Respiratory Rate Blood Pressure Pulse Oximetry GENERAL: A&O x 3 SKIN: Warm and dry. prevena dressing to chest , incision intact to left leg HEAD: Normocephalic. EYES: No scleral icterus. No injection or drainage. NECK: Supple, trachea midline. No JVD or lymphadenopathy. CARDIOVASCULAR: irregular rate and rhythm without murmurs, gallops, or rubs. RESPIRATORY: Breath sounds equal bilaterally. No accessory muscle use. scattered rhonchi , chest tube removed GASTROINTESTINAL: Abdomen soft, non-tender, nondistended. MUSCULOSKELETAL: No cyanosis, or edema. BACK: Nontender without obvious deformity. No CVA tenderness. Labs: Laboratory Results - last 12 hr 03/29/18 04/01/18 04/01/18 06:48 02:54 04:30 WBC 5.6 RBC 3.12 L Hgb 9.6 L Hct 27.4 L MCV 88.0 MCH 30.7 MCHC 34.9 RDW 15.3 Plt Count 96 L D MPV 8.7 Sodium Potassium Chloride Carbon Dioxide Anion Gap BUN Creatinine Estimated GFR POC Glucose 119 H Random Glucose Calcium Magnesium Crossmatch See Detail 04/01/18 04/01/18 04:30 05:48 WBC RBC Hgb Hct MCV MCH MCHC RDW Plt Count MPV Sodium 138 Potassium 4.0 Chloride 103 Carbon Dioxide 29.8 Anion Gap 5 BUN 25 H Creatinine 1.10 Estimated GFR 64 L POC Glucose 107 Random Glucose 113 H Calcium 7.5 L D Magnesium 2.1 Crossmatch Result Diagrams: 04/01/18 04:30 04/01/18 04:30 - Plan (4) S/P CABG x 3 Plan: Neuro: alert and oriented CV: chronic afib Dig, BB , amiodarone eval to resume JAMAAL ( BP to labile) resume eliquis ASA, statin Resp: pulm toileting nebs ezpap, wean 02 add mucinex GI: on PPI GI motility meds Endo: insulin sliding scale PT.OT rehab vs [facility]
[2018-04-01] MEDS: Amiodarone 200 MG Tablet PO SCH ×2 (12:03→21:26)
[2018-04-01] MEDS: guaiFENesin 600 MG ER Tablet PO SCH ×2 (12:04→21:28)
[2018-04-02 04:51] LABS: Calcium 7.5 mg/dL (8.5-10.1); Carbon Dioxide 28.7 meq/L (21.0-32.0); Magnesium 2.3 mg/dL (1.5-2.5); Potassium 3.9 meq/L (3.5-5.1)
[2018-04-02] MEDS: Mupirocin 2% Nasal Oint Topical Syringe EACH NARE SCH (06:03)
--- NOTE | 2018-04-02 06:24 | XR ---
EXAM DATE: 04/02/2018 6:05 AM EST AGE/SEX: 82 years / Male INDICATIONS: Left chest tube removal. CLINICAL DATA: This is the patient's initial encounter. Patient reports that signs and symptoms have been present for 1 day and indicates a pain score of 0/10. MEDICAL/SURGICAL HISTORY: . Hypertension. AFIB. CABG. COMPARISON: C, CHEST 1V SINGLE AP, 03/30/2018. . FINDINGS: Left thoracostomy tube and right neck central catheter is a been removed. There is mild diffuse inter stitial prominence, slight left base atelectasis and small pleural effusions. Accounting for rotation , cardiac contours are grossly stable. CONCLUSION: Thoracostomy tube removed without complication. Slightly diminished aeration Electronically signed by: Guillermo Smart MD Board Certified Radiologist 04/02/2018 6:22 AM EST
[2018-04-02] MEDS: Insulin NovoLOG Aspart Correctional Sugar Inj SQ SCH ×4 (08:39→21:22)
[2018-04-02] MEDS: guaiFENesin 600 MG ER Tablet PO SCH ×2 (08:41→21:19)
[2018-04-02] MEDS: Multivitamin/Minerals Therapeutic Tablet PO SCH (08:41)
[2018-04-02] MEDS: Docusate Sodium 100 MG Capsule PO SCH ×2 (08:41→21:19)
[2018-04-02] MEDS: Finasteride 5 MG Tablet PO SCH (08:41)
[2018-04-02] MEDS: Ascorbic Acid 500 MG Tablet PO SCH (08:42)
[2018-04-02] MEDS: Amiodarone 200 MG Tablet PO SCH ×2 (08:42→21:19)
[2018-04-02] MEDS: Digoxin 250 MCG Tablet PO SCH (08:42)
[2018-04-02] MEDS: Metoprolol Tartrate 25 MG Tablet PO SCH ×3 (08:43→17:40)
--- NOTE | 2018-04-02 09:42 | P.CONURO ---
History of Present Illness Service: Consult date: 04/02/18 Requesting Physician: Karrie Miller Reason for Consult: Urinary retention Primary Care Provider: Ramila Goldstein MD Chief Complaint: Shortness of breath History of Present Illness: 82-year-old gentleman with no prior urologic history who is postop day #4 from undergoing coronary artery bypass grafting surgery. During the postoperative period the patient has had difficulty urinating and ultimately had an indwelling Nunez catheter placed and left indwelling. A urology consult is now placed for further recommendations. The patient has already been started on both finasteride and tamsulosin. Upon further questioning the patient denies any significant voiding complaints prior to his recent surgery. He has noticed that over the past year his stream has slowed down a little bit but was not overly concerning to him. He denies a history of dysuria or hematuria. He denies a history of recurrent urinary tract infections. He is presently ambulatory. Review of Systems All other systems reviewed negative except as stated in HPI [facility] - History History Provided By: Patient - Medical History Medical History: Medical History (Last Reviewed 04/02/18 @ 08:57 by Ty De Los Santos) A-fib CHF (congestive heart failure) Hypertension Raynaud disease - Surgical History Surgical History: Surgical History (Last Reviewed 04/02/18 @ 08:57 by Ty De Los Santos) Hx of colonoscopy Hx of tonsillectomy - Tobacco History Second Hand Smoke Exposure: No Tobacco Use In Past 30 Days: No Smoking Status: Former smoker - Alcohol History How Often Do You Have a Drink Containing Alcohol: Monthly or less - Substance Use History Substance History: No History of Abuse Medications and Allergies Active Medications: Active Medications Al Hydroxide/Mg Hydroxide (Milk Of [place] Liq) 30 ml PO DAILY [facility] Last Admin: 04/01/18 08:38 Dose: 30 ml Amiodarone HCl (Cordarone) 400 mg PO Q12HR [facility] Last Admin: 04/02/18 08:42 Dose: 400 mg Apixaban (Eliquis) 5 mg PO BID [facility] Last Admin: 04/02/18 08:41 Dose: 5 mg Ascorbic Acid (Vitamin C) 1,000 mg PO DAILY [facility] Last Admin: 04/02/18 08:42 Dose: 1,000 mg Aspirin (Ecotrin) 81 mg PO DAILY [facility] Last Admin: 04/02/18 08:41 Dose: 81 mg Atorvastatin Calcium (Lipitor) 20 mg PO DAILY@1800 [facility] Last Admin: 04/01/18 18:00 Dose: 20 mg Bisacodyl (Dulcolax Supp) 10 mg RECTAL PRN PRN PRN Reason: SEE LABEL COMMENTS Dextrose (D50w Vial) 50 ml IV.PUSH UNSCH PRN PRN Reason: PER HYPOGLYCEMIA PROTOCOL Digoxin (Lanoxin) 250 mcg PO DAILY [facility] Last Admin: 04/02/18 08:42 Dose: 250 mcg Docusate Sodium (Colace) 100 mg PO BID [facility] Last Admin: 04/02/18 08:41 Dose: 100 mg Finasteride (Proscar) 5 mg PO DAILY [facility] Last Admin: 04/02/18 08:41 Dose: 5 mg Glucagon (Glucagon Inj) 1 mg OTHER PRN PRN PRN Reason: For hypoglycemia Guaifenesin (Mucinex Er) 600 mg PO BID [facility] Last Admin: 04/02/18 08:41 Dose: 600 mg Magnesium Sulfate 2 gm/ Sodium (Chloride) 104 mls @ 104 mls/hr IV.SIG UNSCH PRN PRN Reason: FOR MAG LEVEL < 2 Amiodarone HCl 450 mg/ (Dextrose) 250 mls @ 33.33 mls/hr IV.CONT TITRATE PRN; Protocol PRN Reason: Per Protocol Last Admin: 03/31/18 16:25 Dose: 0.5 mg/min, 16.66 mls/hr Ceftriaxone Sodium 1,000 mg/ (Sodium Chloride) 100 mls @ 200 mls/hr IV.SIG Q24H [facility] Stop: 04/03/18 11:29 Last Admin: 04/01/18 12:05 Dose: 200 mls/hr Insulin Aspart (Novolog Insulin Correctional Sugar Inj) 0 unit SQ ACHS [facility]; Protocol Last Admin: 04/02/18 08:39 Dose: Not Given Ipratropium [place] (Atrovent Neb) 0.5 mg NEB Q6HR NEB [facility] Last Admin: 04/02/18 09:09 Dose: 0.5 mg Metoprolol Tartrate (Lopressor) 12.5 mg PO [employer] [facility] Stop: 04/04/18 06:49 Last Admin: 03/29/18 07:17 Dose: Not Given Metoprolol Tartrate (Lopressor Inj) 2.5 mg IV.PUSH Q1H PRN PRN Reason: SEE LABEL COMMENTS Last Admin: 03/30/18 11:10 Dose: 2.5 mg Metoprolol Tartrate (Lopressor) 25 mg PO TID [facility] Last Admin: 04/02/18 08:43 Dose: 25 mg Multivitamins/Minerals (Theragran-M) 1 tab PO DAILY [facility] Last Admin: 04/02/18 08:41 Dose: 1 tab Ondansetron HCl (Zofran Inj) 4 mg IV.PUSH Q6H PRN PRN Reason: NAUSEA OR VOMITING Last Admin: 03/29/18 20:54 Dose: 4 mg Oxycodone/Acetaminophen (Percocet 5/325 Mg) 1 tab PO Q3H PRN PRN Reason: PAIN SCALE 1 TO 5 Last Admin: 03/30/18 09:00 Dose: 1 tab Pantoprazole Sodium (Protonix) 40 mg PO DAILY@06 [facility] Last Admin: 04/02/18 06:30 Dose: 40 mg Polyethylene Glycol (Miralax) 17 gm PO DAILY [facility] Last Admin: 04/01/18 08:39 Dose: 17 gm Sennosides (Senokot) 8.6 mg PO HS [facility] Last Admin: 04/01/18 21:26 Dose: Not Given Sodium Biphosphate/Sodium Phosphate (Fleets Enema (Adult)) 118 ml RECTAL UNSCH PRN PRN Reason: SEE LABEL COMMENTS Sodium Chloride (Ns Flush) 2 ml IV.FLUSH PRN PRN PRN Reason: FLUSH AFTER USING IV ACCESS Sodium Chloride (Ns Flush) 2 ml IV.FLUSH BID [facility] Last Admin: 04/01/18 21:33 Dose: 2 ml Tamsulosin HCl (Flomax) 0.4 mg PO DAILY [facility] Last Admin: 04/02/18 08:42 Dose: 0.4 mg Allergies Allergy/AdvReac Type Severity Reaction Status Date / Time No Known Allergies Allergy Verified 03/29/18 06:59 Home Medications Medication Instructions Recorded Confirmed Type apixaban [Eliquis] 5 mg PO BID 03/22/18 03/29/18 History aspirin [Aspirin Low Dose] 81 mg PO DAILY 03/22/18 03/29/18 History atorvastatin 20 mg PO QPM 03/22/18 03/29/18 History furosemide 20 mg PO DAILY 03/22/18 03/29/18 History metoprolol tartrate 100 mg PO BID 03/22/18 03/29/18 History [id number]-ZH-lycopen-lutein 1 tab PO DAILY 03/22/18 03/29/18 History [Centrum Silver] quinapril 5 mg PO DAILY 03/22/18 03/29/18 History ascorbic acid (vitamin C) [Vitamin 1,000 mg PO DAILY 03/29/18 03/29/18 History C] Physical Exam Vital Signs - 24 hr 04/01/18 10:00 04/01/18 11:00 04/01/18 12:00 Temperature 98.0 F Pulse Rate 98 H 98 H 98 H Respiratory Rate 18 Blood Pressure 106/52 L Pulse Oximetry 95 04/01/18 13:00 04/01/18 14:00 04/01/18 15:00 Temperature 98.2 F Pulse Rate 96 H 98 H 87 Respiratory Rate 18 Blood Pressure 112/58 L Pulse Oximetry 96 04/01/18 16:00 04/01/18 16:53 04/01/18 17:00 Temperature Pulse Rate 92 H 86 90 Respiratory Rate 15 Blood Pressure Pulse Oximetry 04/01/18 18:00 04/01/18 19:00 04/01/18 20:00 Temperature 98.2 F Pulse Rate 90 86 82 Respiratory Rate 18 Blood Pressure 95/45 L Pulse Oximetry 95 04/01/18 21:00 04/01/18 21:12 04/01/18 23:00 Temperature 97.9 F Pulse Rate 74 82 94 H Respiratory Rate 18 22 Blood Pressure 89/49 L Pulse Oximetry 94 L 92 L 04/02/18 03:00 04/02/18 03:39 04/02/18 04:00 Temperature 98.4 F Pulse Rate 94 H 74 96 H Respiratory Rate 21 18 Blood Pressure 86/52 L Pulse Oximetry 95 04/02/18 05:00 04/02/18 05:26 04/02/18 07:00 Temperature 97.4 F L Pulse Rate 88 79 102 H Respiratory Rate 18 Blood Pressure 94/54 L Pulse Oximetry 95 04/02/18 09:11 Temperature Pulse Rate 91 H Respiratory Rate 18 Blood Pressure Pulse Oximetry 97 Physical Exam: GENERAL: This is a well-nourished, well-developed patient, in no apparent distress. SKIN: No rashes, ecchymoses or lesions. Cool and dry. HEAD: Atraumatic. Normocephalic. No temporal or scalp tenderness. EYES: Pupils equal round and reactive. Extraocular motions intact. No scleral icterus. No injection or drainage. ENT: Nose without bleeding, purulent drainage or septal hematoma. Throat without erythema, tonsillar hypertrophy or exudate. Uvula midline. Airway patent. NECK: Trachea midline. No JVD or lymphadenopathy. Supple, nontender, no meningeal signs. GASTROINTESTINAL: Abdomen soft, non-tender, nondistended. No hepato-splenomegaly , or palpable masses. No guarding. GENITOURINARY: Bladder not distended, indwelling Nunez catheter draining clear yellow urine. MUSCULOSKELETAL: Extremities without clubbing, cyanosis, or edema. No joint tenderness, effusion, or edema noted. No calf tenderness. Negative Homans sign bilaterally. NEUROLOGICAL: Awake and alert. Cranial nerves II through XII intact. Motor and sensory grossly within normal limits. Five out of 5 muscle strength in all muscle groups. Normal speech. Laboratory Results - last 24 hr 04/01/18 04/01/18 04/01/18 04:30 11:37 17:03 Sodium Potassium Chloride Carbon Dioxide Anion Gap BUN Creatinine Estimated GFR POC Glucose 127 H 131 H Random Glucose Calcium Phosphorus 1.5 L D Magnesium 04/01/18 04/02/18 04/02/18 21:32 04:05 08:38 Sodium 139 Potassium 3.9 Chloride 103 Carbon Dioxide 28.7 Anion Gap 7 BUN 22 H Creatinine 1.11 Estimated GFR 63 L POC Glucose 119 H 136 H Random Glucose 103 Calcium 7.5 L Phosphorus Magnesium 2.3 Microbiology 03/31/18 10:15 Urine Culture - Preliminary Clean Catch Urine No growth in 24 hours Result Diagrams: 04/01/18 04:30 04/02/18 04:05 Imaging: ITS Impressions Chest X-Ray 04/02/18 06:00 CONCLUSION: Thoracostomy tube removed without complication. Slightly diminished aeration Assessment and Plan - Assessment (1) Retention of urine Code(s): R33.9 - Retention of urine, unspecified Status: Acute - Plan Urologic impression: Urinary retention of likely transient nature. Recommendations: 1. Continue with indwelling Nunez catheter to gravity drainage 2. Continue with finasteride and tamsulosin 3. DC Nunez catheter on Thursday morning for repeat voiding trial. This may be performed as an outpatient if patient discharged home. 4. If patient fails repeat voiding trial on Thursday, then further urologic workup to include cystoscopic evaluation will be indicated.
[2018-04-02] MEDS: Polyethylene Glycol 3350 17 GM Packet PO SCH (10:32)
--- NOTE | 2018-04-02 11:36 | P.PNCV ---
- Note CVT: Post Op Day #: 4 Subjective/Hospital Course: 82/ male initially seen in [facility] office by Dr Miller 03/18/18. hx of chronic afib, presented to Dr Singh having developed exertional SOB. Overall decreased ability to exercise, evaluated with a stress test and ECHO which were notable for reduced EF. Recent heart cath revealed 3 vessel CAD, EF 35% PMH: chronic afib ( eliquis) , GERD, CAD, HLP, HTN, CHF 03/29 pt electively admitted for surgery - Preoperative Diagnosis (1) CAD (coronary artery disease (2) Angina pectoris (3) CHF (congestive heart failure), NYHA class III (4) Calcification of aorta Date of procedure: 03/29/18 OFF pump CABG x 3 GARZA to LAd - good SVG to D1 - good SVG to PDA - good EVH MOO extubate after surgery crystalloid 3000cc, 250cc cell saver, 500cc EBL 03/30 had 1090cc/ 24 hrs , 530cc blood drainage from chest tube received cryo and plts HGB 11 this am plt 151 BP and HR elevated , Afib rate 120 , add BB tid , gentle diuresis was on eliquis at home weaned off insulin gtt transfer to stepdown 03/31 remains in afib RVR given digoxin , now on amiodarone gtt will need to leave chest tube in for now , add lovenox for now restart eliquis when chest tube out replace mag, 04/01 unable to start JAMAAL for now with labile BP chest tube dc without difficulty resume eliquis this pm continue dig and BB UA with some bacteria / add 3 doses of rocephin 04/02/18 Doing well. Nunez in place for urinary retention. Objective: Vital Signs - 24 hr 04/01/18 12:00 04/01/18 13:00 04/01/18 14:00 Temperature 98.0 F Pulse Rate 98 H 96 H 98 H Respiratory Rate 18 Blood Pressure 106/52 L Pulse Oximetry 95 04/01/18 15:00 04/01/18 16:00 04/01/18 16:53 Temperature 98.2 F Pulse Rate 87 92 H 86 Respiratory Rate 18 15 Blood Pressure 112/58 L Pulse Oximetry 96 04/01/18 17:00 04/01/18 18:00 04/01/18 19:00 Temperature 98.2 F Pulse Rate 90 90 86 Respiratory Rate 18 Blood Pressure 95/45 L Pulse Oximetry 95 04/01/18 20:00 04/01/18 21:00 04/01/18 21:12 Temperature Pulse Rate 82 74 82 Respiratory Rate 18 Blood Pressure Pulse Oximetry 94 L 04/01/18 23:00 04/02/18 03:00 04/02/18 03:39 Temperature 97.9 F 98.4 F Pulse Rate 94 H 94 H 74 Respiratory Rate 22 21 18 Blood Pressure 89/49 L 86/52 L Pulse Oximetry 92 L 95 04/02/18 04:00 04/02/18 05:00 04/02/18 05:26 Temperature Pulse Rate 96 H 88 79 Respiratory Rate Blood Pressure Pulse Oximetry 04/02/18 07:00 04/02/18 08:00 04/02/18 09:00 Temperature 97.4 F L Pulse Rate 88 104 H 100 H Respiratory Rate 18 Blood Pressure 94/54 L Pulse Oximetry 95 04/02/18 09:11 04/02/18 10:00 Temperature Pulse Rate 91 H 80 Respiratory Rate 18 Blood Pressure Pulse Oximetry 97 Labs: Laboratory Results - last 12 hr 04/02/18 04/02/18 04:05 08:38 Sodium 139 Potassium 3.9 Chloride 103 Carbon Dioxide 28.7 Anion Gap 7 BUN 22 H Creatinine 1.11 Estimated GFR 63 L POC Glucose 136 H Random Glucose 103 Calcium 7.5 L Magnesium 2.3 Result Diagrams: 04/01/18 04:30 04/02/18 04:05 Imaging: Chest X-Ray 04/02/18 06:00 CONCLUSION: Thoracostomy tube removed without complication. Slightly diminished aeration Cardiovascular: IRR Pulmonary: CTA GI/: NABS Incision: dry and intact - Plan (4) S/P CABG x 3 Plan: Neuro: alert and oriented CV: chronic afib Dig, BB , amiodarone eval to resume JAMAAL ( BP to labile) resume eliquis ASA, statin Resp: pulm toileting nebs ezpap, wean 02 add mucinex GI: on PPI GI motility meds Endo: insulin sliding scale PT.OT rehab vs [facility] Walk test for O2 Urology follow-up Plan DC tomorrow with Nunez. No ACEI due to low BP
[2018-04-03] MEDS: Multivitamin/Minerals Therapeutic Tablet PO SCH (08:41)
[2018-04-03] MEDS: guaiFENesin 600 MG ER Tablet PO SCH ×2 (08:41→20:25)
[2018-04-03] MEDS: Ascorbic Acid 500 MG Tablet PO SCH (08:41)
[2018-04-03] MEDS: Digoxin 250 MCG Tablet PO SCH (08:41)
[2018-04-03] MEDS: Metoprolol Tartrate 25 MG Tablet PO SCH ×3 (08:41→18:45)
[2018-04-03] MEDS: Docusate Sodium 100 MG Capsule PO SCH ×2 (08:42→20:25)
[2018-04-03] MEDS: Insulin NovoLOG Aspart Correctional Sugar Inj SQ SCH ×3 (08:42→17:53)
[2018-04-03] MEDS: Amiodarone 200 MG Tablet PO SCH ×2 (08:42→20:25)
[2018-04-03] MEDS: Finasteride 5 MG Tablet PO SCH (08:42)
[2018-04-03] MEDS: Polyethylene Glycol 3350 17 GM Packet PO SCH (09:54)
--- NOTE | 2018-04-03 12:38 | P.DS ---
Date of admission: 03/29/18 13:01 Primary care physician: Ramila Goldstein MD Attending physician on discharge: Karrie Miller Anticipated date of discharge: 04/03/18 Brief History from admission: Subjective/Hospital Course: 82/ male initially seen in [facility] office by Dr Miller 03/18/18. hx of chronic afib, presented to Dr Singh having developed exertional SOB. Overall decreased ability to exercise, evaluated with a stress test and ECHO which were notable for reduced EF. Recent heart cath revealed 3 vessel CAD, EF 35% PMH: chronic afib ( eliquis) , GERD, CAD, HLP, HTN, CHF Patient update on day of discharge: Patient requires discharge with Nunez due to urinary retention issues. Urology saw him and will see him as an outpatient this week. DS: Diagnosis - Discharge Diagnosis (1) CAD (coronary artery disease) Status: Acute Diagnosis: Principal (2) Angina pectoris Status: Acute Diagnosis: Principal (3) CHF (congestive heart failure), NYHA class III Status: Chronic Diagnosis: Principal (4) S/P CABG x 3 Status: Acute Diagnosis: Principal (5) Atrial fibrillation Status: Acute Diagnosis: Secondary (6) COPD (chronic obstructive pulmonary disease) Status: Acute Diagnosis: Secondary (7) Hyperlipidemia Status: Acute Diagnosis: Secondary (8) HTN (hypertension) Status: Acute Diagnosis: Secondary DS: Medications - Discharge Medications Prescriptions: oxycodone-acetaminophen 1 tab PO Q3H PRN #30 tab PRN Reason: Pain Scale 1 To 5 DS: Summary Hospital Course: 03/29 pt electively admitted for surgery - Preoperative Diagnosis (1) CAD (coronary artery disease (2) Angina pectoris (3) CHF (congestive heart failure), NYHA class III (4) Calcification of aorta Date of procedure: 03/29/18 OFF pump CABG x 3 GARZA to LAd - good SVG to D1 - good SVG to PDA - good EVH MOO extubate after surgery crystalloid 3000cc, 250cc cell saver, 500cc EBL 03/30 had 1090cc/ 24 hrs , 530cc blood drainage from chest tube received cryo and plts HGB 11 this am plt 151 BP and HR elevated , Afib rate 120 , add BB tid , gentle diuresis was on eliquis at home weaned off insulin gtt transfer to stepdown 03/31 remains in afib RVR given digoxin , now on amiodarone gtt will need to leave chest tube in for now , add lovenox for now restart eliquis when chest tube out replace mag, 04/01 unable to start JAMAAL for now with labile BP chest tube dc without difficulty resume eliquis this pm continue dig and BB UA with some bacteria / add 3 doses of rocephin 04/02/[address] Doing well. Nunez in place for urinary retention. - Time Spent with Patient Total time spent providing and/or coordinating discharge services: Greater than 30 minutes - Quality: AMI Clinical Trial Participant: No - Quality: VTE Deep Vein Thrombosis/Pulmonary Embolism Present on Admission: No Exam Vital signs: Vital Signs 04/02/18 13:00 04/02/18 14:00 04/02/18 15:00 Temperature 97.6 F Pulse Rate 88 96 H 74 Respiratory Rate 20 Blood Pressure 91/54 L Pulse Oximetry 97 04/02/18 16:00 04/02/18 16:05 04/02/18 17:00 Temperature Pulse Rate 84 72 92 H Respiratory Rate 16 Blood Pressure Pulse Oximetry 04/02/18 17:35 04/02/18 18:28 04/02/18 19:00 Temperature 97.6 F Pulse Rate 95 H 77 Respiratory Rate 18 Blood Pressure 95/64 L 92/50 L Pulse Oximetry 98 04/02/18 20:00 04/02/18 20:42 04/02/18 21:00 Temperature Pulse Rate 84 83 80 Respiratory Rate 14 Blood Pressure Pulse Oximetry 98 04/02/18 22:00 04/02/18 23:00 04/03/18 00:00 Temperature 97.9 F Pulse Rate 78 90 88 Respiratory Rate 18 Blood Pressure 121/59 L Pulse Oximetry 97 04/03/18 01:00 04/03/18 02:00 04/03/18 03:00 Temperature 98 F Pulse Rate 76 89 87 Respiratory Rate 20 Blood Pressure 120/56 L Pulse Oximetry 96 04/03/18 03:24 04/03/18 04:00 04/03/18 05:00 Temperature Pulse Rate 88 91 H 92 H Respiratory Rate 18 Blood Pressure Pulse Oximetry 04/03/18 06:00 04/03/18 07:00 04/03/18 08:00 Temperature 97.9 F Pulse Rate 92 H 95 H 100 H Respiratory Rate 16 Blood Pressure 117/51 L Pulse Oximetry 99 04/03/18 08:33 04/03/18 09:00 04/03/18 10:00 Temperature Pulse Rate 108 H 110 H Respiratory Rate Blood Pressure Pulse Oximetry 96 04/03/18 11:00 Temperature 98.0 F Pulse Rate 77 Respiratory Rate 16 Blood Pressure 104/52 L Pulse Oximetry 97 Intake & Output 04/02/18 04/03/18 04/03/18 18:59 06:59 18:59 Intake Total 580 / 580 100 / 100 Output Total 650 / 650 600 / 600 Balance -70 / -70 -600 / -600 100 / 100 Weight 73.9 kg Intake: IV 100 / 100 100 / 100 Rocephin Inj 1,000 MG In NS Inj 100 / 100 100 / 100 100 ML @ 200 mls/hr IV.SIG Q24H RONIT Rx#:[id number] Oral 480 / 480 Output: Urine 600 / 600 Urine Amount (Catheter) 650 / 650 Indwelling Urethral Catheter 650 / 650 Other: Date of Last Bowel Movement 04/02/18 04/02/18 04/02/18 # Bowel Movements 1 - Constitutional no acute distress - Routine HEENT Exam Head: Present: normocephalic, atraumatic Eye: Present: EOMI, PERRL, normal accommodation - Routine Neck Exam Present: supple, full ROM - Routine Respiratory Exam Present: CTA bilaterally - Routine Cardiovascular Exam Present: RRR, S1, S2. Absent: murmur - Routine Abdominal Exam Present: soft, normoactive bowel sounds. Absent: tenderness - Routine Extremities Exam Present: pulses intact. Absent: cyanosis, clubbing, edema - Routine Skin Exam Present: intact - Routine Neurological Exam Present: alert, oriented X3 Results Procedures completed during hospitalization: Off pump CABG Labs on day of discharge: Labs from last 24 hours 04/03/18 04/03/18 04/02/18 11:19 08:37 21:18 POC Glucose 122 H 108 111 H 04/02/18 04/02/18 16:58 12:27 POC Glucose 103 118 H - Impressions ITS Impressions Chest X-Ray 04/02/18 06:00 CONCLUSION: Thoracostomy tube removed without complication. Slightly diminished aeration Discharge Plan - Discharge Disposition Patient Disposition: Disch /Home Health Service - Discharge Condition Condition: Good - Discharge Order Discharge Orders: Discharge Order (Routine); Ordered 04/03/18 Ordered By: Karrie Miller - Discharge Details Anticipated Discharge Date: 04/03/18 - Physicians Team Primary Care Provider: Raimla Goldstein Attending Provider: Karrie Miller Other Providers: Eddie Allen MD ; Berto Meyers MD - Rxs /Orders / Referrals /Forms Prescriptions: New amiodarone 200 mg Tablet 200 mg PO Q12HR 14 Days RF: 0 digoxin 250 mcg Tablet 250 mcg PO DAILY Qty: 30 RF: 0 docusate sodium [DOK] 100 mg Capsule 100 mg PO BID RF: 0 finasteride 5 mg Tablet 5 mg PO DAILY 30 Days Qty: 30 RF: 2 metoprolol tartrate 25 mg Tablet 25 mg PO TID 30 Days Qty: 90 RF: 2 qzvmlzkf-lvzu-IK-calcium-mins [Thera M Plus (ferrous fumarat)] 9 mg iron-400 mcg Tablet 1 tab PO DAILY RF: 0 oxycodone-acetaminophen 5-325 mg Tablet 1 tab PO Q3H PRN (Reason: Pain Scale 1 To 5) Qty: 30 RF: 0 pantoprazole 40 mg Tablet,Delayed Release (Dr/Ec) 40 mg PO DAILY@06 14 Days RF: 0 tamsulosin 0.4 mg Capsule 0.4 mg PO DAILY 30 Days Qty: 30 RF: 2 Continue apixaban [Eliquis] 5 mg Tablet 5 mg PO BID ascorbic acid (vitamin C) [Vitamin C] 1,000 mg Tablet 1,000 mg PO DAILY aspirin [Aspirin Low Dose] 81 mg Tablet,Delayed Release (Dr/Ec) 81 mg PO DAILY atorvastatin 20 mg Tablet 20 mg PO QPM pgfxcsdi-lex-WY-lycopen-lutein [Centrum Silver] 0.4-300-250 mg-mcg-mcg Tablet 1 tab PO DAILY Discontinued furosemide 20 mg Tablet 20 mg PO DAILY metoprolol tartrate 100 mg Tablet 100 mg PO BID quinapril 5 mg Tablet 5 mg PO DAILY Referrals: Rivas Singh MD [Physician] - See Instructions ( Your appointment has been scheduled for [05/06/18] at [10:45 AM] If you cannot make this appointment, please call the office to reschedule ) Berto Meyers MD [UROLOGY] - See Instructions ( Please call the physician's office to book the appointment to be seen on Thursday04/05/18) Ramila Goldstein MD [Primary Care Provider] - See Instructions ( Your appointment has been scheduled for [04/13/18] at [2:50 PM] If you cannot make this appointment, please call the office to reschedule ) Tianna Pritchard [ADVANCE RN PRACTITIONER] - See Instructions ( Your appointment has been scheduled for [04/22/18] at [10:45 AM] If you cannot make this appointment, please call the office to reschedule ) - Discharge Instructions Patient Printed Instructions: CABG (Coronary Artery Bypass Graft) (DC) Additional Instructions: Incentive spirometry Q1 hr x 10, while awake, also use acapella device hourly whole awake Sternal Breast Bone Precautions: NO pushing or pulling, ( pt must use sternal pillow to support chest with all activities and with coughing ( takes up to 3 months breast bone to heal ) Daily incision care: ok to shower daily, no tub bath. Wash all incisions with liquid dial soap, clean wash cloth to each site, rinse and pat dry. Observe for any signs of infection, such as drainage which is dark yellow, nguyen, green or foul smelling. Immediately report to the surgeon any drainage from the chest incision, or legs, and for any abnormal drainage from the chest tube sites. Notify surgeon if any temp >101.5 degrees F. When specialty dressing removed/ or if you do not have one, continue to shower daily as above, then rinse and pat incision dry and paint with betadine daily x 5 days. Allow steri strips to fall off if you have any. Avoid lotions, creams, salves, oils, etc. for the first month Please see attached forms for additional instructions regarding post Open Heart specialty wound vacuum dressings. MARISELA or Prevena , Dressing to be removed by Nursing staff on _04/05/[address] Miller patients , please obtain CBC, BMP, PA & Lat CXR in 2 weeks, results to Dr. Miller ( prescription will be given) ( ) (Tele: [phone]) , F/U appointment: as per DC instructions: PCP in 2 weeks, CV surgeon 2 weeks, Content Writer 3-4 weeks For any questions regarding incisions/ dressing / meds / post op care or above Symptoms, Thursday 8am-5pm Heart & Vascular Surgery Office ( Dr. Winn & Dr. Miller), After Hours / Nights (5pm -8am) Weekends and Holidays Please call [facility] ([facility]) Charge Nurse PREVENA Single Use Negative Wound Therapy System Caregiver Instruction Sheet 1. A Prevena dressing system was applied to the chest incision during surgery , to promote wound healing. It works via a suction device (negative pressure wound therapy) to remove low to moderate levels of exudate (drainage) and infectious materials. We recommend that the device stay in place for up to seven days, from day of surgery. 2. Day of Surgery___/01/04 Day of Removal ___/ 3. The dressing should only be removed by a health manager long term care. Please arrange removal of device to coincide with Home Health visit and or with Nursing staff at Rehab 4. If skin reddening or irritation of skin occurs, or excessive drainage, please notify the Cardiovascular Surgeons office at [phone]. 5. Light showering is permissible; however the pump should be disconnected and placed in safe location, where it will not get wet. The dressing should not be exposed to direct spray or submerged in water. No bath tub / shower only. Ensure the end of the tubing attached to the dressing is facing down so that water does not enter the top of the tube. 6. To remove Prevena dressing: press purple button to turn off device / remove the suction. Then disconnect the tubing from the pump. The fixation strips should be stretched away from the skin and the dressing lifted at one corner and peeled back until it has been fully removed. 7. After removal, it is ok to shower daily using liquid dial soap and clean wash cloth, rinse and pat dry, and leave incision open to air dry. For any concerns regarding Prevena dressing, and or wounds, please contact Autumn Hernandez, patient navigator at [phone] or notify the Cardiovascular Surgeons office at [phone].
== END 2018-04-03 21:00 | disposition home health service (06) | DRG 236 ==
LOC: HSDC 06:21 → EDSTATUS 08:30 → HCVI 13:01 → HCPC 03-31 18:23
PROVIDERS: ADMIT Thoracic Surgery (Cardiothoracic Vascular Surgery); ATTEND Thoracic Surgery (Cardiothoracic Vascular Surgery)
CPT/HCPCS: 36430; 71010; 71045; 76937; 80048; 81001; 82948; 82962; 83735; 84100; 85014; 85025; 85027; 85384; 85610; 85730; 86850; 86900; 86901; 86920; 86921; 86922; 86965; 87086; 93005; 93312; 93318; 94002; 94150; 94618; 94620; 94640; 94650; 94651; 94656; 94664; 94665; 94667; 97110; 97116; 97162; 97530; C1014; C1768; C9248; J0131; J0282; J0690; J0696; J1160; J1644; J1650; J1815; J1940; J2250; J2370; J2405; J2440; J2710; J2720; J2930; J3010; J3370; J3475; J3480; J7050; J7060; J7120; P9016; P9035; P9045